=== PATIENT | female | born 1975 | race Caucasian/White ===

== ENCOUNTER 2017-04-01 16:12 | Emergency (ER) | payer MEDICAID, OTHER ==
[~2017-04-01] VITALS: Ht 167.6 cm; Wt 136.1 kg
[2017-04-01 16:49] VITALS: BP 150/100
== END 2017-04-01 18:22 | disposition home or self-care (01) ==
LOC: ER 16:16
DX: S90.31XA Contusion of right foot, initial encounter (principal); S93.401A Sprain of unspecified ligament of right ankle, initial encounter; J44.9 Chronic obstructive pulmonary disease, unspecified; I10 Essential (primary) hypertension
CPT/HCPCS: 73610; 73630

== ENCOUNTER 2024-07-03 20:53 | Inpatient (IN) | payer MEDICARE, MEDICAID ==
[~2024-07-03] VITALS: Ht 167.6 cm; Wt 363.0 kg
[2024-07-03] MEDS ORDERED: SODIUM CHLORIDE 0.9% 1,000 ML IV ONE (21:15)
--- NOTE | 2024-07-03 21:15 | ED.PDOC ---
SOB-HPI HPI Comments 49 year old female came to ER via EMS due to shortness of breath. Patient has history of hypertension, CHF and COPD. Patient is morbidly obese. For the past few hours, patient has been having shortness of breath, and chest tightness progressively worsening. Upon arrival of paramedics, patient in respiratory distress, noted rales and wheezes. Saturating at 78% on room air. Patient was given nitro, Duovent nebulization and placed on CPAP while en route to the ER. Currently saturating at 93% Chief Complaint: Shortness Of Breath Time Seen by MD: 21:15 Primary Care Provider: DESMOND Reviewed notes: Nurses Notes Information Source: Patient, Emergency Med Personnel Mode of Arrival: EMS Severity: Moderate Timing: Hours Duration: Since onset History of: COPD, CHF Prehospital treatment: Breathing Tx, NTG, Treatment Review of Systems REVIEW OF SYSTEMS: No fever, no chills, or fatigue HEENT: No sore throat, no earache, no congestion, no neck pain. Cardiac: (+) chest pain. No palpitations. Lungs: (+) shortness of breath, (+) cough. (+) rales (+) wheezing GI: No nausea, no vomiting, no diarrhea, no constipation, no abdominal pain : No dysuria, frequency, or urgency. No hematuria. Musculoskeletal: No joint pain , no joint swelling, no extremity edema. Skin: No rash, no itching. Neuro: No headache, no dizziness, no weakness Vital Signs Vital Signs Date Time Temp Pulse Resp B/P (MAP) Pulse Ox O2 Delivery O2 Flow Rate FiO2 07/04/24 00:30 77 24 128/84 (99) 92 07/03/24 23:43 6.0 07/03/24 23:30 98.3 98.3 07/03/24 21:00 Bi-Pap+ 40 40 Physical Exam General: Awake, alert and oriented. No acute distress. Skin: Skin in warm, dry and intact. Appropriate color for ethnicity. Nailbeds pink with no cyanosis. HEENT: The head is normocephalic and atraumatic. Conjunctivae are clear without exudates or hemorrhage. Sclera is non-icteric. EOM are intact. No signs of nystagmus. Eyelids are normal in appearance without swelling or lesions. Oral mucosa is pink and moist Neck: The neck is supple with normal range of motion. No JVD. Cardiac: Heart rate and rhythm are normal. No murmurs, gallops, or rubs are auscultated. Respiratory: Labored breathing. Tachypnea, positive rales, no wheezing. Abdominal: Abdomen is soft, non-tender without distention. Bowel sounds are present and normoactive in all four quadrants. Extremities: Nonpitting bilateral lower extremity edema. Neurological: The patient is awake, alert and oriented to person, place, and time with normal speech. Speech is clear. There is no facial asymmetry. Past Medical History PAST MEDICAL HISTORY: CHF, COPD, HTN Past Medical History (Other): Morbid obesity Surgical History: Denies all surgeries DETECTIVE CAPTAIN History: No Pertinent DETECTIVE CAPTAIN History Family History Family History: Unknown Social History Smoker: Non-Smoker Alcohol: Denies ETOH Use Drugs: Denies Drug Use Lives In: Home EKG EKG : Pulse Rate (adult): 82 Cardiac Rhythm: NSR Block: LBBB Hypertrophy: LAE, LVH Was a procedure done? Was a procedure done?: No Differential Dx Differential Diagnosis: Asthma, CHF, COPD, Myocardial infarction, Panic Attack, Pneumonia, Respiratory Distress X-Ray, Labs, Meds, VS Vital Signs Date Time Temp Pulse Resp B/P (MAP) Pulse Ox O2 Delivery O2 Flow Rate FiO2 07/04/24 00:30 77 24 128/84 (99) 92 07/03/24 23:55 88 22 135/96 07/03/24 23:43 84 18 148/75 95 6.0 07/03/24 23:30 98.3 84 22 148/75 (99) 95 98.3 07/03/24 23:29 84 22 148/75 07/03/24 21:46 136/97 07/03/24 21:15 82 07/03/24 21:03 82 07/03/24 21:00 Bi-Pap+ 40 40 07/03/24 20:54 84 Facial BiPAP Mask 40 07/03/24 20:54 26 93 Bi-Pap+ 0 40 40 07/03/24 20:54 98.3 84 26 136/97 (110) 93 Lab Test 07/04/24 00:19 07/03/24 22:21 07/03/24 22:05 07/03/24 21:38 Range/Units Troponin I High Sensitivity 263 *H 260 *H </=34 ng/L Blood Gas Specimen Type Arterial Blood Gas Sample Site Right radial Blood Gas Patient Temperature 37.0 Arterial Blood Date Drawn [id number] Arterial Blood pH 7.345 L 7.350-7.450 Arterial Blood Partial Pressure CO2 52.7 H 32.0-45.0 mmHg Arterial Blood Partial Pressure O2 83.7 83.0-108.0 mmHg Arterial Blood HCO3 28.1 H 21.0-28.0 mmol/L Arterial Blood Oxygen Saturation 95.4 94.0-98.0 % Arterial Blood Base Excess 1.4 -2.0-3.0 mmol/L Arterial Blood Oxyhemoglobin 92.8 L 94.0-98.0 % Arterial Blood Carboxyhemoglobin 2.1 H 0.5-1.5 % Arterial Blood Methemoglobin 0.6 0.0-1.5 % Mohsen Test Yes Blood Gas Total Hemoglobin 14.20 12.0-16.0 g/dL Blood Gas Set Respiration Rate 12.0 Blood Gas Modality Mask - bipap FiO2 % 40.0 Blood Gas EPAP 5 Blood Gas IPAP 12 Influenza Type A Antigen Negative Negative Influenza Type B Antigen Negative Negative SARS-CoV-2 Antigen (Rapid) Negative NEGATIVE Test 07/03/24 21:20 07/03/24 10:25 Range/Units White Blood Count 9.6 4.4-10.8 10^3/uL Red Blood Count 4.39 4.0-5.20 10^6/uL Hemoglobin 13.4 12.2-16.2 g/dL Hematocrit 39.0 36.0-46.0 % Mean Corpuscular Volume 88.8 80.0-100.0 fL Mean Corpuscular Hemoglobin 30.5 28.0-32.0 pg Mean Corpuscular Hemoglobin Concent 34.3 32.0-36.0 g/dL Red Cell Distribution Width 16.1 H 11.8-14.3 % Platelet Count 228 140-450 10^3/uL Mean Platelet Volume 8.8 6.9-10.8 fL Neutrophils (%) (Auto) 77.2 37.0-80.0 % Lymphocytes (%) (Auto) 13.7 10.0-50.0 % Monocytes (%) (Auto) 5.9 0.0-12.0 % Eosinophils (%) (Auto) 2.6 0.0-7.0 % Basophils (%) (Auto) 0.6 0.0-2.0 % Neutrophils # (Auto) 7.4 1.6-8.6 10 ^3/uL Lymphocytes # (Auto) 1.3 0.4-5.4 10 ^3/uL Monocytes # (Auto) 0.6 0-1.3 10 ^3/uL Eosinophils # (Auto) 0.3 0-0.8 10 ^3/uL Basophils # (Auto) 0.1 0-0.2 10 ^3/uL Nucleated Red Blood Cells 0.1 % D-Dimer, Quantitative 3.51 H 0.0-0.49 mg/L FEU Sodium Level 139 136-145 mmol/L Potassium Level 4.8 3.5-5.1 mmol/L Chloride Level 107 98-107 mmol/L Carbon Dioxide Level 30 20-31 mmol/L Anion Gap 2 L 5-15 Blood Urea Nitrogen 14 9-23 mg/dL Creatinine 0.84 0.550-1.02 mg/dL Glomerular Filtration Rate Calc 84 >90 mL/min BUN/Creatinine Ratio 16.7 10.0-20.0 Serum Glucose 102 74-106 mg/dL Lactic Acid Level 0.9 0.4-2.0 mmol/L Calcium Level 9.4 8.7-10.4 mg/dL Total Bilirubin 0.8 0.2-1.0 mg/dL Aspartate Amino Transferase (AST) 32 13-40 U/L Alanine Aminotransferase (ALT) 30 7-40 U/L Alkaline Phosphatase 101 46-116 U/L Troponin I High Sensitivity 258 *H </=34 ng/L B-Type Natriuretic Peptide 376.99 0-100 pg/mL Total Protein 6.8 5.7-8.2 g/dL Albumin 4.0 3.2-4.8 g/dL Urine Color Yellow Yellow Urine Clarity Clear Clear Urine pH 5.5 5.0-9.0 Urine Specific [place] 1.020 1.001-1.035 Urine Protein Trace H Negative Urine Ketones Negative Negative Urine Blood Negative Negative /uL Urine Nitrite 2+ H Negative Urine Bilirubin Negative Negative Urine Urobilinogen Normal Negative mg/dL Urine Leukocyte Esterase Negative Negative /uL Urine RBC 1 0 - 4 /hpf Urine Microscopic WBC 2 0-5 /HPF Urine Squamous Epithelial Cells Few <5 /hpf Urine Bacteria Few H None Seen /hpf Urine Hyaline Casts Few 0 - 2 /lpf Urine Mucus Few None Seen Urine Glucose Normal Normal mg/dL Current Medications Medications (Trade) Dose Ordered Sig/Edgard Route Start Time Stop Time Status Last Admin Albuterol (Ventolin Medneb) 2.5 mg ONCE ONCE NEB 07/03/24 21:15 07/03/24 21:16 DC 07/03/24 21:21 Ipratropium Thayer (Atrovent Medneb) 0.5 mg ONCE ONCE NEB 07/03/24 21:15 07/03/24 21:16 DC 07/03/24 21:21 Furosemide (Lasix Injection) 40 mg ONCE ONCE IV 07/03/24 21:15 07/03/24 21:16 DC 07/03/24 21:46 Methylprednisolone Sodium Succinate (Solu Medrol) 80 mg ONCE ONCE IV 07/03/24 21:15 07/03/24 21:16 DC 07/03/24 21:47 Morphine Sulfate 2 mg ONCE ONCE IV 07/03/24 23:30 07/03/24 23:31 DC 07/03/24 23:29 Ondansetron HCl (Zofran) 4 mg ONCE ONCE IV 07/03/24 23:30 07/03/24 23:31 DC 07/03/24 23:28 CHEST RADIOGRAPH Indication: cp Technique: Single frontal view of the chest was obtained Comparison: None FINDINGS: Lines and Tubes: None Lungs: Bilateral pulmonary vascular congestion Pleura: No effusion. No pneumothorax. Cardiomediastinal contours: Cardiomegaly Bones: No acute osseous abnormality. IMPRESSION: 1. Findings suggest congestive failure can not entirely exclude pneumonia Images Reviewed?: Images reviewed and evaluated by me (Chest x-ray shows congestive changes) Time of 1ST Reevaluation: 21:07 Reevaluation 1ST: Unchanged Patient Education/Counseling: Diagnosis, Treatment Family Education/Counseling: No Family Present Departure 1 Departure Time of Disposition: 23:14 Impression: Primary Impression: Shortness of breath Additional Impression: Acute exacerbation of CHF (congestive heart failure) Disposition: ADMITTED INPATIENT Condition: Stable Comments 49-year-old female who presents to the emergency department with acute onset worsening shortness of breath, she is found to be hypoxic. Workup reveals CHF exacerbation. IV Lasix, DuoNeb and Solu-Medrol administered in the ED. Troponin noted to be elevated at 258, not increasing. D-dimer elevated. Considered heparin however patient is denying any chest pain, no ST changes on EKG.CT angiogram pending. Patient admitted for further treatment, evaluation and monitoring. Extensive evaluation was performed in attempt to identify or rule out: (See differential diagnosis section) The following tests were ordered, and results were reviewed by me: (See diagnostic results section) The following test were independently interpreted by me: EKG, chest x-ray I reviewed and agreed with the following test results read by other providers: Chest x-ray I reviewed the following notes from the pt's past medical encounters: Encounter March of 2017 for foot injury Additional information was gathered from interviewing the following independent historians: EMS personnel Discussion of management or test interpretation with external physician/other qualified health career services assistant: DISCUSSED WITH DR. BROWNING WITH [employer] [phone] Addressed an acute or chronic illness that poses a threat to life or bodily function: Hypoxia, CHF exacerbation Decision regarding hospitalization or escalation of hospital level of care: Risk and benefits of admission for further treatment of patient's condition was considered. Due to patient's current clinical condition, high risk of decline and poor outcome if discharged and need for further inpatient management and monitoring, patient will be admitted to the hospital. Drug therapy requiring intensive monitoring for toxicity: IV contrast, IV Lasix Parenteral controlled substances: N/A Decision regarding elective major surgery with identified patient or procedure risk factors: N/A Decision regarding emergency major surgery: N/A Decision not to resuscitate or to de-escalate care because of poor prognosis: N/A Diagnosis or treatment significantly limited by social determinants of health: N/A Decision regarding hospitalization or escalation of hospital level of care: Risks and benefits of admission for further treatment of patient's condition was considered however due to patient's stable condition patient will be discharged to follow up closely or return to care for worsening of condition or inability to follow up. Critical Care Note Critical Care Time?: Yes (35 min-critical care time only) Critical care comment: Shortness of breath, CPAP Stability Stability form required: No Heart Score Heart Score: Heart Score Response (Comments) Value History Moderate Suspicious 1 EKG Repolarization Disturb 1 Age 45-64 1 Risk Factors >3 or Hx ASHD 2 Troponin >3 x's Normal limit 2 Total 7 I personally scribed for JADEN NUÑEZ MD ([email or web address]) on 07/03/24 at 21:15. Electronically submitted by Vito Li ([facility]). I personally scribed for JADEN NUÑEZ MD ([email or web address]) on 07/03/24 at 22:21. Electronically [facility] by [facility]ito Li ([email or web address] JADEN NUÑEZ MD Jul 03, 2024 21:15
[2024-07-03] MEDS: IPRATROPIUM BROM 0.5 MG/2.5ML INH SOL NEB ONE (21:21)
[2024-07-03] MEDS: ALBUTEROL SULF 2.5 MG/0.5ML(0.5%) NEB SOLN NEB ONE (21:21)
--- NOTE | 2024-07-03 21:31 | DVH ---
CHEST RADIOGRAPH Indication: cp Technique: Single frontal view of the chest was obtained Comparison: None FINDINGS: Lines and Tubes: None Lungs: Bilateral pulmonary vascular congestion Pleura: No effusion. No pneumothorax. Cardiomediastinal contours: Cardiomegaly Bones: No acute osseous abnormality. IMPRESSION: 1. Findings suggest congestive failure can not entirely exclude pneumonia
[2024-07-03 21:36] LABS: Basophils # (auto) 0.1 10 ^3/uL (0-0.2); Basophils % (auto) 0.6 % (0.0-2.0); Eosinophils # (auto) 0.3 10 ^3/uL (0-0.8); Eosinophils % (auto) 2.6 % (0.0-7.0); Hemoglobin 13.4 g/dL (12.2-16.2); Lymphocytes # (auto) 1.3 10 ^3/uL (0.4-5.4); Lymphocytes % (auto) 13.7 % (10.0-50.0); Mean Corpuscular Hemoglobin 30.5 pg (28.0-32.0); Mean Corpuscular Hgb Conc. 34.3 g/dL (32.0-36.0); Mean Corpuscular Volume 88.8 fL (80.0-100.0); Monocytes # (auto) 0.6 10 ^3/uL (0-1.3); Monocytes % (auto) 5.9 % (0.0-12.0); Neutrophils # (auto) 7.4 10 ^3/uL (1.6-8.6); Neutrophils % (auto) 77.2 % (37.0-80.0); Nucleated Red Blood Cells % 0.1 %; Platelet Count (auto) 228 10^3/uL (140-450); Red Blood Cells 4.39 10^6/uL (4.0-5.20); Red Cell Distribution Width 16.1 % (11.8-14.3); White Blood Cell 9.6 10^3/uL (4.4-10.8)
[2024-07-03] MEDS: FUROSEMIDE 40 MG/4 ML VIAL IV ONE (21:46)
[2024-07-03] MEDS: methylPREDNISolone SOD SUCC 125 MG/2 ML VL IV ONE (21:47)
[2024-07-03 21:50] LABS: Alanine Aminotransferase 30 U/L (7-40); Alkaline Phosphatase 101 U/L (46-116); Anion Gap 2 (5-15); Aspartate Aminotransferase 32 U/L (13-40); BUN/Creatinine Ratio 16.7 (10.0-20.0); Blood Urea Nitrogen 14 mg/dL (9-23); Calcium 9.4 mg/dL (8.7-10.4); Carbon Dioxide 30 mmol/L (20-31); Chloride 107 mmol/L (98-107); Glucose 102 mg/dL (74-106); Potassium 4.8 mmol/L (3.5-5.1); Sodium 139 mmol/L (136-145); Total Protein 6.8 g/dL (5.7-8.2)
[2024-07-03 21:51] LABS: Bilirubin, Total 0.8 mg/dL (0.2-1.0)
[2024-07-03 22:15] LABS: Base Excess 1.4 mmol/L (-2.0-3.0)
[2024-07-03 22:26] LABS: Rapid Influenza A Negative (Negative); Rapid Influenza B Negative (Negative)
[2024-07-03 22:27] LABS: COVID19 ANTIGEN SOFIA FIA NEGATIVE (NEGATIVE)
[2024-07-03] MEDS ORDERED: ACETAMINOPHEN 325 MG TAB PO ONE (23:15)
[2024-07-03] MEDS: ONDANSETRON HCL 4 MG/2 ML VIAL IV ONE (23:28)
[2024-07-03] MEDS: MORPHINE SULFATE INJ 2 MG/ml SYRG IV ONE (23:29)
[2024-07-03 23:43] VITALS: BP 148/75; PULSE 84; RESP 18; O2SAT 95
[2024-07-04] VITALS (9 sets, daily range): BP systolic 114–146; BP diastolic 63–90; PULSE 78–90; RESP 17–26; TEMP 98.2–98.3; O2SAT 92–96
[2024-07-04] MEDS: IOHEXOL 350 MG/ML 100ML IJ ONE (00:07)
[2024-07-04 00:31] LABS: Urine Bacteria FEW /hpf (None Seen); Urine Blood Negative /uL (Negative); Urine Clarity Clear (Clear); Urine Color Yellow (Yellow); Urine Hyaline Cast FEW /lpf (0 - 2); Urine Mucus FEW (None Seen); Urine Protein, UAD TRACE (Negative); Urine Squamous Epithelial Cell FEW /hpf (<5); Urine Urobilinogen Normal (Negative); Urine WBC 2 /HPF (0-5); Urine pH 5.5 (5.0-9.0)
--- NOTE | 2024-07-04 00:40 | DVH ---
CTA Chest with intravenous contrast INDICATION: Shortness of breath, hypoxia, elevated D-dimer COMPARISON: None TECHNIQUE: Multidetector spiral CTA of the chest was performed of the chest with intravenous contrast . PULMONARY ANGIOGRAPHY PROTOCOL was utilized using a bolus-tracking technique centered on the main p ulmonary artery. Axial, coronal and sagittal multiplanar and MIP reformats were performed. Radiation Dose : 1. Chest: CTDI volume is mGy. Dose-length product is mGy*cm The dose indicators for CT are the volume Computed Tomography (CT) Dose Index (CTDIvol) and the Dose Length Product (DLP), and are measured in units of mGy and mGy-cm, respectively. These indicators are not patient dose, but values generated from the CT scanner acquisition factors. The report includes radiation exposure data for exposures received during this examination. Findings: Pulmonary artery: No evidence of pulmonary embolism. Lower neck: Unremarkable. Lungs / Pleura: Small bilateral pleural effusions. Groundglass opacities along with patchy interstiti al and airspace opacities noted in both lungs most likely representing pulmonary edema though pneumon ia cannot be excluded. Heart/Vascular Structures: [id number] cardiomegaly. No pericardial effusion. Normal thoracic ao rta. Lymph Nodes: No lymphadenopathy. Musculoskeletal: No acute osseous abnormality. Soft tissues: Unremarkable. Visualized Upper abdomen: Unremarkable. IMPRESSION: No evidence of pulmonary embolism. Cardiomegaly. Small bilateral effusions. Groundglass opacities along with patchy interstitial and air space opacities noted in both lungs most likely representing pulmonary edema though pneumonia cannot be excluded.
[2024-07-04] MEDS: MORPHINE SULFATE INJ 2 MG/ml SYRG IV ONE (03:27)
[2024-07-04] MEDS ORDERED: IPRATROPIUM BROM 0.5 MG/2.5ML INH SOL NEB PRN (04:00)
[2024-07-04] MEDS: cefTRIAXone 1GM/50ML D5W 50 ML IV ONE ×2 (04:00→04:56)
[2024-07-04] MEDS ORDERED: NITROGLYCERIN 0.4 MG SL TAB SL PRN ×2 (04:00→04:45)
[2024-07-04] MEDS ORDERED: ONDANSETRON HCL 4 MG/2 ML VIAL IV PRN (04:00)
[2024-07-04] MEDS ORDERED: hydrALAZINE HCL 20 MG/ML VL IV PRN ×2 (04:00→04:45)
[2024-07-04] MEDS ORDERED: DOCUSATE SOD 100 MG CAP PO PRN (04:00)
[2024-07-04] MEDS ORDERED: MORPHINE SULFATE INJ 2 MG/ml SYRG IV PRN ×2 (04:00→04:45)
[2024-07-04] MEDS ORDERED: ALBUTEROL SULF 2.5 MG/0.5ML(0.5%) NEB SOLN NEB PRN (04:00)
--- NOTE | 2024-07-04 04:09 | DVHHP2 ---
History of Present Illness Reason for Visit: Acute exacerbation of congestive heart failure History of Present Illness The patient is a 49-year-old female morbidly obese with past medical history of COPD, CHF, and hypertension who presented to [facility] ED with complaint of shortness of breaths. Patient reports symptoms progressively get worse with chest tightness, increased work of breathing, getting worse that prompted this visit. Patient was seen and evaluated in the ED, laboratory data shows WBC 9.6, platelets 228, sodium 139, potassium 4.8, BUN 14, creatinine 0 .84, GFR 84, glucose 102, troponin 258, BNP 376.99, D-dimer 3.51. Urinalysis positive for urinary tract infection. CT angiography showed no evidence of pulmonary embolism. Chest x-ray revealing congestive failure, pneumonia can not be excluded. Patient was started on IV antibiotic regimen Rocephin, please see medication orders section in the computer. On my assessment, patient denied chest pain, no headache, no dizziness, currently on CPAP, no nausea, no vomiting, no fever, no chills. Patient was admitted for further evaluation and medical management. Past Medical History CHF, COPD, HTN, Morbid obesity Past Surgical History Denies all surgeries Family History Reviewed, noncontributory to the management of this case. Past Social History The patient lives at home, denies smoking, alcohol or illicit drugs abuse. Review of Systems Constitutional: Yes: Weakness; No: Fever, Chills, Sweats, Malaise, Other Eyes: No: Pain, Vision change, Conjunctivae inflammation, Eyelid inflammation, Other, Redness ENT: No: Ear pain, Ear discharge, Nose pain, Nose discharge, Nose congestion, Mouth pain, Mouth swelling, Throat pain, Throat swelling, Other Respiratory: Shortness of breath, Wheezing, Other (SOB at rest); No: Cough, Dry, SOB with excertion, Hemoptysis, Pleuritic Pain, Sputum, Wheezing Cardiovascular: Chest Pain; No: Palpitations, Orthopnea, Paroxysmal Noc. Dysp jessie, Edema, Lt Headedness, Other Gastrointestinal: No: Nausea, Vomiting, Abdominal Pain, Diarrhea, Constipation, Melena, Hematochezia, Other Genitourinary: No Dysuria, No Frequency, No Incontinence, No Hematuria, No Retention, No Other Musculoskeletal: No: other, neck pain, shoulder pain, arm pain, back pain, hand pain, leg pain, foot pain Skin: No: Rash, Lesions, Jaundice, Bruising, Other Neurological: No: Weakness, Numbness, Incoordination, Change in speech, Confusion, Seizures, Other Allergies: Coded Allergies: Acetaminophen (Verified Allergy, Severe, 07/03/24) Ibuprofen (Verified Allergy, Severe, 07/03/24) NSAIDs (Verified Allergy, Unknown, 07/03/24) Exam Vital Signs Vital Signs Date Time Temp Pulse Resp B/P (MAP) Pulse Ox O2 Delivery O2 Flow Rate FiO2 07/04/24 03:52 78 24 148/97 07/04/24 03:30 92 07/03/24 23:43 6.0 07/03/24 23:30 98.3 98.3 07/03/24 21:00 Bi-Pap+ 40 40 General Appearance: Alert, Oriented X3, Cooperative, No acute distress HEENT: Atraumatic, PERRLA, EOMI, Mucous membr. moist/pink Respiratory: Normal air movement, Other (Diminished breath sounds) Cardiovascular: Regular rate, Normal S1, Normal S2, No murmurs Abdominal: Normal bowel sounds, Soft, No tenderness, No hepatospenomegaly, No masses Extremities: No clubbing, No cyanosis, No edema, Normal pulses, No tenderness/swelling Skin: No rashes, No breakdown, No significant lesion Neuro: Normal speech, Normal tone, Sensation intact, Cranial nerves 3-12 NL, Reflexes 2+, Other (Generalized weakness) Psych/Mental Status: Mental status NL, Mood NL Labs/Xrays Labs Test 07/04/24 00:19 07/03/24 22:05 07/03/24 21:38 07/03/24 21:20 Range/Units Troponin I High Sensitivity 263 *H </=34 ng/L Blood Gas Specimen Type Arterial Blood Gas Sample Site Right radial Blood Gas Patient Temperature 37.0 Arterial Blood Date Drawn [id number] Arterial Blood pH 7.345 L 7.350-7.450 Arterial Blood Partial Pressure CO2 52.7 H 32.0-45.0 mmHg Arterial Blood Partial Pressure O2 83.7 83.0-108.0 mmHg Arterial Blood HCO3 28.1 H 21.0-28.0 mmol/L Arterial Blood Oxygen Saturation 95.4 94.0-98.0 % Arterial Blood Base Excess 1.4 -2.0-3.0 mmol/L Arterial Blood Oxyhemoglobin 92.8 L 94.0-98.0 % Arterial Blood Carboxyhemoglobin 2.1 H 0.5-1.5 % Arterial Blood Methemoglobin 0.6 0.0-1.5 % Mohsen Test Yes Blood Gas Total Hemoglobin 14.20 12.0-16.0 g/dL Blood Gas Set Respiration Rate 12.0 Blood Gas Modality Mask - bipap FiO2 % 40.0 Blood Gas EPAP 5 Blood Gas IPAP 12 Influenza Type A Antigen Negative Negative Influenza Type B Antigen Negative Negative SARS-CoV-2 Antigen (Rapid) Negative NEGATIVE White Blood Count 9.6 4.4-10.8 10^3/uL Red Blood Count 4.39 4.0-5.20 10^6/uL Hemoglobin 13.4 12.2-16.2 g/dL Hematocrit 39.0 36.0-46.0 % Mean Corpuscular Volume 88.8 80.0-100.0 fL Mean Corpuscular Hemoglobin 30.5 28.0-32.0 pg Mean Corpuscular Hemoglobin Concent 34.3 32.0-36.0 g/dL Red Cell Distribution Width 16.1 H 11.8-14.3 % Platelet Count 228 140-450 10^3/uL Mean Platelet Volume 8.8 6.9-10.8 fL Neutrophils (%) (Auto) 77.2 37.0-80.0 % Lymphocytes (%) (Auto) 13.7 10.0-50.0 % Monocytes (%) (Auto) 5.9 0.0-12.0 % Eosinophils (%) (Auto) 2.6 0.0-7.0 % Basophils (%) (Auto) 0.6 0.0-2.0 % Neutrophils # (Auto) 7.4 1.6-8.6 10 ^3/uL Lymphocytes # (Auto) 1.3 0.4-5.4 10 ^3/uL Monocytes # (Auto) 0.6 0-1.3 10 ^3/uL Eosinophils # (Auto) 0.3 0-0.8 10 ^3/uL Basophils # (Auto) 0.1 0-0.2 10 ^3/uL Nucleated Red Blood Cells 0.1 % D-Dimer, Quantitative 3.51 H 0.0-0.49 mg/L FEU Sodium Level 139 136-145 mmol/L Potassium Level 4.8 3.5-5.1 mmol/L Chloride Level 107 98-107 mmol/L Carbon Dioxide Level 30 20-31 mmol/L Anion Gap 2 L 5-15 Blood Urea Nitrogen 14 9-23 mg/dL Creatinine 0.84 0.550-1.02 mg/dL Glomerular Filtration Rate Calc 84 >90 mL/min BUN/Creatinine Ratio 16.7 10.0-20.0 Serum Glucose 102 74-106 mg/dL Lactic Acid Level 0.9 0.4-2.0 mmol/L Calcium Level 9.4 8.7-10.4 mg/dL Total Bilirubin 0.8 0.2-1.0 mg/dL Aspartate Amino Transferase (AST) 32 13-40 U/L Alanine Aminotransferase (ALT) 30 7-40 U/L Alkaline Phosphatase 101 46-116 U/L B-Type Natriuretic Peptide 376.99 0-100 pg/mL Total Protein 6.8 5.7-8.2 g/dL Albumin 4.0 3.2-4.8 g/dL Test 07/03/24 10:25 Range/Units Urine Color Yellow Yellow Urine Clarity Clear Clear Urine pH 5.5 5.0-9.0 Urine Specific [place] 1.020 1.001-1.035 Urine Protein Trace H Negative Urine Ketones Negative Negative Urine Blood Negative Negative /uL Urine Nitrite 2+ H Negative Urine Bilirubin Negative Negative Urine Urobilinogen Normal Negative mg/dL Urine Leukocyte Esterase Negative Negative /uL Urine RBC 1 0 - 4 /hpf Urine Microscopic WBC 2 0-5 /HPF Urine Squamous Epithelial Cells Few <5 /hpf Urine Bacteria Few H None Seen /hpf Urine Hyaline Casts Few 0 - 2 /lpf Urine Mucus Few None Seen Urine Glucose Normal Normal mg/dL PATIENT: JESSICA MURRELL ACCT: [id number] UNIT: [id number] : 1975 LOC: ER ROOM / BED: / AGE / SEX: 49 / F ADM STATUS: REG ER SERVICE [id number] ORDERING PHYSICIAN: JADEN NUÑEZ MD PROCEDURE(s): CTACH - CT ANGIO CHEST CONTRAST REASON: Shortness of breath, hypoxia, elevated D-dimer ORDER NUMBER(s): [id number], ACCESSION NUMBER(s): [id number] CTA Chest with intravenous contrast INDICATION: Shortness of breath, hypoxia, elevated D-dimer COMPARISON: None TECHNIQUE: Multidetector spiral CTA of the chest was performed of the chest with intravenous contrast. PULMONARY ANGIOGRAPHY PROTOCOL was utilized using a bolus- tracking technique centered on the main pulmonary artery. Axial, coronal and sagittal multiplanar and MIP reformats were performed. Radiation Dose: 1. Chest: CTDI volume is mGy. Dose-length product is mGy*cm The dose indicators for CT are the volume Computed Tomography (CT) Dose Index (CTDIvol) and the Dose Length Product (DLP), and are measured in units of mGy and mGy-cm, respectively. These indicators are not patient dose, but values generated from the CT scanner acquisition factors. The report includes radiation exposure data for exposures received during this examination. Findings: Pulmonary artery: No evidence of pulmonary embolism. Lower neck: Unremarkable. Lungs/Pleura: Small bilateral pleural effusions. Groundglass opacities along w ith patchy interstitial and airspace opacities noted in both lungs most likely representing pulmonary edema though pneumonia cannot be excluded. Heart/Vascular Structures: [id number] cardiomegaly. No pericardial effusion. Normal thoracic aorta. Lymph Nodes: No lymphadenopathy. Musculoskeletal: No acute osseous abnormality. Soft tissues: Unremarkable. Visualized Upper abdomen: Unremarkable. IMPRESSION: No evidence of pulmonary embolism. Cardiomegaly. Small bilateral effusions. Groundglass opacities along with patchy interstitial and airspace opacities noted in both lungs most likely representing pulmonary edema though pneumonia cannot be excluded. ORDERING PHYSICIAN: JADEN NUÑEZ MD PROCEDURE(s): CXR1 - CHEST XRAY 1 VIEW REASON: cp ORDER NUMBER(s): [id number], ACCESSION NUMBER(s): [id number] CHEST RADIOGRAPH Indication: cp Technique: Single frontal view of the chest was obtained Comparison: None FINDINGS: Lines and Tubes: None Lungs: Bilateral pulmonary vascular congestion Pleura: No effusion. No pneumothorax. Cardiomediastinal contours: Cardiomegaly Bones: No acute osseous abnormality. IMPRESSION: 1. Findings suggest congestive failure can not entirely exclude pneumonia Assessment/Plan Assessment/Plan COPD with acute exacerbation Elevated D-dimer Morbid obesity Elevated troponin Pneumonia, unspecified organisms Acute exacerbation of congestive heart failure Urinary tract infection Generalized weakness Plan 1. Admit to telemetry unit 2. Breathing treatment 3. Pain control management 4. IV antibiotic management 5. Management of fluids and electrolytes 6. Consultation for cardiology 7. Diagnostic test CT Angiography 8. DVT prophylaxis-on Eliquis 9. Repeat labs CBC, CMP in a.m. 10. Home medication reviewed and reconciled 11. Continue with current medical management 12. Treatment plan discussed with patient and RN. Patient verbalized understanding. Plan discussed with: Patient, Other (RN) My Orders Orders - HOMAR ALBERT DNP Procedure Category Date Status Time Complete Blood Count LAB 07/04/24 Verified 03:47 Comprehensive LAB 07/04/24 Verified Metabolic Panel 03:47 * Cardiology Consult CONS 07/04/24 Verified 03:47 Carvedilol Tablet PHA 07/04/24 Verified (Coreg Tablet) 10:00 Atorvastatin (Lipitor) PHA 07/04/24 Verified 22:00 Albuterol Medneb PHA 07/04/24 Verified (Ventolin Medneb) 04:00 Ipratropium Medneb PHA 07/04/24 Verified (Atrovent Medneb) 04:00 Famotidine Injection PHA 07/04/24 Verified (Pepcid Injection) 10:00 Methylprednisolone PHA 07/04/24 Verified Sod Succ (Solu Medrol 06:00 Furosemide Injection PHA 07/04/24 Verified (Lasix Injection) 10:00 Urine Bacterial JASE 07/04/24 Verified Culture 03:47 Ceftriaxone Ivpb PHA 07/04/24 Verified Rocephin 09:00 Ceftriaxone Ivpb PHA 07/04/24 Verified Rocephin 04:00 Apixaban (Eliquis) PHA 07/04/24 Verified 10:00 Admit ADMIT 07/04/24 Verified 03:47 Allergies ADOLFO 07/04/24 Verified 03:47 Code Status CODE 07/04/24 Verified 03:47 Sodium Chloride Lock PHA 07/04/24 Verified (Saline Lock Ns) 06:00 Oxygen Per Hour RT 07/04/24 Verified 03:47 Ondansetron Hcl PHA 07/04/24 Verified (Zofran) 04:00 Docusate Sodium PHA 07/04/24 Verified Capsule (Colace 04:00 Complete Blood Count LAB 07/05/24 Verified 04:00 Comprehensive LAB 07/05/24 Verified Metabolic Panel 04:00 Cardiac DIET 07/04/24 Verified Diet-2gna,Lofat,Lochol Breakfast Condition: Serious ADOLFO 07/04/24 Verified 03:47 Bedrest With Bathroom ADOLFO 07/04/24 Verified Privileg 03:47 Sequential [facility] 07/04/24 Verified Compression Device Nitroglycerin [facility] 07/04/24 Verified Sublingual (Ntrostat 04:00 Morphine Sulfate [facility] 07/04/24 Verified Injection 04:00 Stat Ekg For Chest [facility] 07/04/24 Verified Pain 03:47 Notify Md Of Changes [facility] 07/04/24 Verified From Base 03:47 Registered Nurse Midwife For [facility] 07/04/24 Verified 24 Hours 03:47 Emergency Dysrhythmia [facility] 07/04/24 Verified Protocol 03:47 Rhythm Strips Once [facility] 07/04/24 Verified Every Shift 03:47 Oxygen By Nasal 07/04/24 Verified Cannula 03:47 Problem List: (1) COPD with acute exacerbation (2) Elevated d-dimer (3) Elevated troponin (4) Acute exacerbation of congestive heart failure (5) Morbid obesity (6) Generalized weakness (7) Urinary tract infection (8) Pneumonia, unspecified organism Date of Service: Jul 04, 2024 Billing Provider: HOMAR ALBERT DNP Common Visit Codes: [id number] INP/OBS CARE (HIGH) HOMAR ALBERT DNP Jul 04, 2024 04:09
[2024-07-04 04:51] LABS: Alanine Aminotransferase 32 U/L (7-40); Albumin 4.3 g/dL (3.2-4.8); Alkaline Phosphatase 105 U/L (46-116); Anion Gap 7 (5-15); Aspartate Aminotransferase 33 U/L (13-40); BUN/Creatinine Ratio 15.6 (10.0-20.0); Blood Urea Nitrogen 12 mg/dL (9-23); Calcium 9.8 mg/dL (8.7-10.4); Carbon Dioxide 30 mmol/L (20-31); Chloride 100 mmol/L (98-107); Potassium 4.9 mmol/L (3.5-5.1); Sodium 137 mmol/L (136-145); Total Protein 7.5 g/dL (5.7-8.2)
[2024-07-04 04:52] LABS: Bilirubin, Total 0.9 mg/dL (0.2-1.0)
[2024-07-04 04:58] LABS: Glucose 142 mg/dL (74-106)
[2024-07-04 05:38] LABS: Basophils # (auto) 0 10 ^3/uL (0-0.2); Basophils % (auto) 0.2 % (0.0-2.0); Eosinophils # (auto) 0 10 ^3/uL (0-0.8); Eosinophils % (auto) 0.1 % (0.0-7.0); Hematocrit 42.5 % (36.0-46.0); Hemoglobin 14.4 g/dL (12.2-16.2); Lymphocytes # (auto) 0.5 10 ^3/uL (0.4-5.4); Lymphocytes % (auto) 4.6 % (10.0-50.0); Mean Corpuscular Hemoglobin 30.3 pg (28.0-32.0); Mean Corpuscular Hgb Conc. 33.8 g/dL (32.0-36.0); Mean Corpuscular Volume 89.4 fL (80.0-100.0); Monocytes # (auto) 0.1 10 ^3/uL (0-1.3); Monocytes % (auto) 0.9 % (0.0-12.0); Neutrophils % (auto) 94.2 % (37.0-80.0); Nucleated Red Blood Cells % 0.1 %; Platelet Count (auto) 244 10^3/uL (140-450); Red Blood Cells 4.75 10^6/uL (4.0-5.20); Red Cell Distribution Width 16.4 % (11.8-14.3); White Blood Cell 10.6 10^3/uL (4.4-10.8)
[2024-07-04] MEDS: SODIUM CHLOR 0.9% PF (SALINE LOCK) 10ML VIAL/SYR IV SCH (05:46)
[2024-07-04] MEDS: methylPREDNISolone SOD SUCC 40 MG/ML VL IV SCH (05:51)
[2024-07-04] MEDS ORDERED: SODIUM CHLOR 0.9% PF (SALINE LOCK) 10ML VIAL/SYR IV SCH (06:00)
[2024-07-04] MEDS ORDERED: methylPREDNISolone SOD SUCC 40 MG/ML VL IV SCH (06:00)
[2024-07-04] MEDS: AZITHROMYCIN 500MG/ 250ML 250 ML IV ONE (06:08)
[2024-07-04] MEDS: APIXABAN 5 MG TAB PO SCH (09:10)
[2024-07-04] MEDS: FAMOTIDINE (10MG/ML) 2ML VL IV SCH (09:10)
[2024-07-04] MEDS: FUROSEMIDE 40 MG/4 ML VIAL IV SCH (09:10)
[2024-07-04] MEDS: CARVEDILOL 12.5 MG TAB PO SCH (09:11)
--- NOTE | 2024-07-04 09:38 | DVHINCON2 ---
Date of service: Jul 04, 2024 History of Present Illness 49 year old female came to ER via EMS due to shortness of breath. Patient has history of hypertension, CHF and COPD. Patient is morbidly obese. For the past few hours, patient has been having shortness of breath, and chest tightness progressively worsening. Upon arrival of paramedics, patient in respiratory distress, noted rales and wheezes. Saturating at 78% on room air. Patient was given nitro, Duovent nebulization and placed on CPAP while en route to the ER. Currently saturating at 93% Chief Complaint: Shortness Of Breath Time Seen by MD: 21:15 Primary Care Provider: DESMOND Mallory notes: Nurses Notes Information Source: Patient, Emergency Med Personnel Mode of Arrival: EMS Severity: Moderate Timing: Hours Duration: Since onset History of: COPD, CHF Prehospital treatment: Breathing Tx, NTG, Treatment Review of Systems REVIEW OF SYSTEMS: Past Medical History reviewed Allergies: Coded Allergies: Acetaminophen (Verified Allergy, Severe, 07/03/24) Ibuprofen (Verified Allergy, Severe, 07/03/24) NSAIDs (Verified Allergy, Unknown, 07/03/24) Current Medications Current Medications Medications (Trade) Dose Ordered Sig/Edgard Route PRN Reason Start Time Stop Time Status Last Admin Carvedilol (Coreg Tablet) 12.5 mg Q12HR PO 07/04/24 10:00 07/04/24 04:33 DC Atorvastatin Calcium (Lipitor) 20 mg HS PO 07/04/24 22:00 07/04/24 04:33 DC Albuterol (Ventolin Medneb) 2.5 mg Q4HPRN PRN NEB SHORTNESS OF BREATH 07/04/24 04:00 07/04/24 04:32 DC Ipratropium [place] (Atrovent Medneb) 0.5 mg Q4HPRN PRN NEB SHORTNESS OF BREATH 07/04/24 04:00 07/04/24 04:35 DC Famotidine (Pepcid Injection) 20 mg Q12HR IV 07/04/24 10:00 07/04/24 04:34 DC Methylprednisolone Sodium Succinate (Solu Medrol) 40 mg Q8HR IV 07/04/24 06:00 07/04/24 04:35 DC Furosemide (Lasix Injection) 40 mg DAILY IV 07/04/24 10:00 07/04/24 04:34 DC Ceftriaxone Sodium 50 ml @ 100 mls/hr DAILY@09 IV 07/05/24 09:00 07/04/24 04:31 DC Apixaban (Eliquis) 5 mg BID PO 07/04/24 10:00 07/04/24 04:33 DC Sodium Chloride (Saline Lock Ns) 10 ml Q8HR IV 07/04/24 06:00 07/04/24 04:36 DC Ondansetron HCl (Zofran) 4 mg Q4HP PRN IV NAUSEA / VOMITING 07/04/24 04:00 07/04/24 04:36 DC Docusate Sodium (Colace Capsule) 100 mg BIDPRN PRN PO FOR CONSTIPATION 07/04/24 04:00 07/04/24 04:34 DC Nitroglycerin (Ntrostat Sublingual) 0.4 mg Q5MINP PRN SL FOR CHEST PAIN 07/04/24 04:00 07/04/24 04:36 DC Morphine Sulfate 2 mg Q30M PRN IV FOR CHEST PAIN 07/04/24 04:00 07/04/24 04:35 DC Hydralazine HCl (Apresoline Injection) 10 mg Q6HP PRN IV SBP>150 07/04/24 04:00 07/04/24 04:35 DC Ceftriaxone Sodium 50 ml @ 100 mls/hr Q24H IV 07/05/24 05:00 Albuterol (Ventolin Medneb) 2.5 mg Q4HPRN PRN NEB SHORTNESS OF BREATH 07/04/24 04:45 Apixaban (Eliquis) 5 mg BID PO 07/04/24 10:00 07/04/24 09:10 Atorvastatin Calcium (Lipitor) 20 mg HS PO 07/04/24 22:00 Carvedilol (Coreg Tablet) 12.5 mg Q12HR PO 07/04/24 10:00 07/04/24 09:11 Docusate Sodium (Colace Capsule) 100 mg BIDPRN PRN PO FOR CONSTIPATION 07/04/24 04:45 Famotidine (Pepcid Injection) 20 mg Q12HR IV 07/04/24 10:00 07/04/24 09:10 Furosemide (Lasix Injection) 40 mg DAILY IV 07/04/24 10:00 07/04/24 09:10 Hydralazine HCl (Apresoline Injection) 10 mg Q6HP PRN IV SBP>150 07/04/24 04:45 Ipratropium [place] (Atrovent Medneb) 0.5 mg Q4HPRN PRN NEB SHORTNESS OF BREATH 07/04/24 04:45 Methylprednisolone Sodium Succinate (Solu Medrol) 40 mg Q8HR IV 07/04/24 06:00 07/04/24 05:51 Morphine Sulfate 2 mg Q30M PRN IV FOR CHEST PAIN 07/04/24 04:45 Nitroglycerin (Ntrostat Sublingual) 0.4 mg Q5MINP PRN SL FOR CHEST PAIN 07/04/24 04:45 Ondansetron HCl (Zofran) 4 mg Q4HP PRN IV NAUSEA / VOMITING 07/04/24 04:45 Sodium Chloride (Saline Lock Ns) 10 ml Q8HR IV 07/04/24 06:00 07/04/24 05:46 Azithromycin 250 ml @ 125 mls/hr Q24H IV 07/05/24 06:00 Review of Systems +sob, +weakness, 10 pt ros otherwise negative Vital Signs Vital Signs Date Time Temp Pulse Resp B/P (MAP) Pulse Ox O2 Delivery O2 Flow Rate FiO2 07/04/24 09:11 81 127/78 07/04/24 08:00 12 95 07/04/24 07:41 Facial BiPAP Mask 50 07/04/24 07:30 10 07/04/24 07:30 98.0 98.0 Physical Exam nad , on cpap s1 s2 rrr tachpneic, diffuse rhonchi abd soft obese trivial edema Labs/Diagnostic Data Labs Test 07/04/24 04:26 07/04/24 00:19 07/03/24 22:25 07/03/24 22:05 Range/Units White Blood Count 10.6 4.4-10.8 10^3/uL Red Blood Count 4.75 4.0-5.20 10^6/uL Hemoglobin 14.4 12.2-16.2 g/dL Hematocrit 42.5 36.0-46.0 % Mean Corpuscular Volume 89.4 80.0-100.0 fL Mean Corpuscular Hemoglobin 30.3 28.0-32.0 pg Mean Corpuscular Hemoglobin Concent 33.8 32.0-36.0 g/dL Red Cell Distribution Width 16.4 H 11.8-14.3 % Platelet Count 244 140-450 10^3/uL Mean Platelet Volume 9.1 6.9-10.8 fL Neutrophils (%) (Auto) 94.2 H 37.0-80.0 % Lymphocytes (%) (Auto) 4.6 L 10.0-50.0 % Monocytes (%) (Auto) 0.9 0.0-12.0 % Eosinophils (%) (Auto) 0.1 0.0-7.0 % Basophils (%) (Auto) 0.2 0.0-2.0 % Neutrophils # (Auto) 10.0 H 1.6-8.6 10 ^3/uL Lymphocytes # (Auto) 0.5 0.4-5.4 10 ^3/uL Monocytes # (Auto) 0.1 0-1.3 10 ^3/uL Eosinophils # (Auto) 0 0-0.8 10 ^3/uL Basophils # (Auto) 0 0-0.2 10 ^3/uL Nucleated Red Blood Cells 0.1 % Sodium Level 137 136-145 mmol/L Potassium Level 4.9 3.5-5.1 mmol/L Chloride Level 100 98-107 mmol/L Carbon Dioxide Level 30 20-31 mmol/L Anion Gap 7 5-15 Blood Urea Nitrogen 12 9-23 mg/dL Creatinine 0.77 0.550-1.02 mg/dL Glomerular Filtration Rate Calc 93 >90 mL/min BUN/Creatinine Ratio 15.6 10.0-20.0 Serum Glucose 142 H 74-106 mg/dL Calcium Level 9.8 8.7-10.4 mg/dL Total Bilirubin 0.9 0.2-1.0 mg/dL Aspartate Amino Transferase (AST) 33 13-40 U/L Alanine Aminotransferase (ALT) 32 7-40 U/L Alkaline Phosphatase 105 46-116 U/L Total Protein 7.5 5.7-8.2 g/dL Albumin 4.3 3.2-4.8 g/dL Troponin I High Sensitivity 263 *H </=34 ng/L Urine Color Yellow Yellow Urine Clarity Clear Clear Urine pH 5.5 5.0-9.0 Urine Specific [place] 1.020 1.001-1.035 Urine Protein Trace H Negative Urine Ketones Negative Negative Urine Blood Negative Negative /uL Urine Nitrite 2+ H Negative Urine Bilirubin Negative Negative Urine Urobilinogen Normal Negative mg/dL Urine Leukocyte Esterase Negative Negative /uL Urine RBC 1 0 - 4 /hpf Urine Microscopic WBC 2 0-5 /HPF Urine Squamous Epithelial Cells Few <5 /hpf Urine Bacteria Few H None Seen /hpf Urine Hyaline Casts Few 0 - 2 /lpf Urine Mucus Few None Seen Urine Glucose Normal Normal mg/dL Blood Gas Specimen Type Arterial Blood Gas Sample Site Right radial Blood Gas Patient Temperature 37.0 Arterial Blood Date Drawn [id number] Arterial Blood pH 7.345 L 7.350-7.450 Arterial Blood Partial Pressure CO2 52.7 H 32.0-45.0 mmHg Arterial Blood Partial Pressure O2 83.7 83.0-108.0 mmHg Arterial Blood HCO3 28.1 H 21.0-28.0 mmol/L Arterial Blood Oxygen Saturation 95.4 94.0-98.0 % Arterial Blood Base Excess 1.4 -2.0-3.0 mmol/L Arterial Blood Oxyhemoglobin 92.8 L 94.0-98.0 % Arterial Blood Carboxyhemoglobin 2.1 H 0.5-1.5 % Arterial Blood Methemoglobin 0.6 0.0-1.5 % Mohsen Test Yes Blood Gas Total Hemoglobin 14.20 12.0-16.0 g/dL Blood Gas Set Respiration Rate 12.0 Blood Gas Modality Mask - bipap FiO2 % 40.0 Blood Gas EPAP 5 Blood Gas IPAP 12 Test 07/03/24 21:38 07/03/24 21:20 Range/Units Influenza Type A Antigen Negative Negative Influenza Type B Antigen Negative Negative SARS-CoV-2 Antigen (Rapid) Negative NEGATIVE D-Dimer, Quantitative 3.51 H 0.0-0.49 mg/L FEU Lactic Acid Level 0.9 0.4-2.0 mmol/L B-Type Natriuretic Peptide 376.99 0-100 pg/mL Assessment chf NOS morbid obesity nstemi copd hypoxia Plan/Recommendation start asa/ statin check echo cont bipap/ lasix prn not a candidate for invasive eval given large size pt is a [place] pt as well guarded prognosis ecg SR , reviewed Plan discussed with: Patient ROCHEPALOMA MD Jul 04, 2024 09:38
[2024-07-04] MEDS ORDERED: FUROSEMIDE 40 MG/4 ML VIAL IV SCH (10:00)
[2024-07-04] MEDS ORDERED: CARVEDILOL 12.5 MG TAB PO SCH (10:00)
[2024-07-04] MEDS ORDERED: FAMOTIDINE (10MG/ML) 2ML VL IV SCH (10:00)
[2024-07-04] MEDS ORDERED: APIXABAN 5 MG TAB PO SCH (10:00)
[2024-07-04] MEDS: ATORVASTATIN 20 MG TAB PO SCH (21:22)
[2024-07-04] MEDS ORDERED: ATORVASTATIN 20 MG TAB PO SCH (22:00)
[2024-07-05] VITALS (16 sets, daily range): BP systolic 110–138; BP diastolic 56–79; PULSE 62–89; RESP 16–23; TEMP 97.8–98.7; O2SAT 92–97
[2024-07-05] MEDS: cefTRIAXone 1GM/50ML D5W 50 ML IV SCH (04:42)
[2024-07-05] MEDS: AZITHROMYCIN 500MG/ 250ML 250 ML IV SCH (05:27)
[2024-07-05 06:20] LABS: Basophils # (auto) 0.1 10 ^3/uL (0-0.2); Basophils % (auto) 0.5 % (0.0-2.0); Eosinophils # (auto) 0 10 ^3/uL (0-0.8); Hematocrit 40.1 % (36.0-46.0); Hemoglobin 13.5 g/dL (12.2-16.2); Lymphocytes # (auto) 0.6 10 ^3/uL (0.4-5.4); Lymphocytes % (auto) 2.9 % (10.0-50.0); Mean Corpuscular Hemoglobin 29.8 pg (28.0-32.0); Mean Corpuscular Hgb Conc. 33.5 g/dL (32.0-36.0); Mean Corpuscular Volume 88.9 fL (80.0-100.0); Monocytes # (auto) 0.5 10 ^3/uL (0-1.3); Monocytes % (auto) 2.8 % (0.0-12.0); Neutrophils # (auto) 18.2 10 ^3/uL (1.6-8.6); Neutrophils % (auto) 93.8 % (37.0-80.0); Nucleated Red Blood Cells % 0.1 %; Platelet Count (auto) 258 10^3/uL (140-450); Red Blood Cells 4.51 10^6/uL (4.0-5.20); Red Cell Distribution Width 16.2 % (11.8-14.3); White Blood Cell 19.5 10^3/uL (4.4-10.8)
[2024-07-05 06:50] LABS: Alanine Aminotransferase 39 U/L (7-40); Albumin 4.1 g/dL (3.2-4.8); Alkaline Phosphatase 96 U/L (46-116); Anion Gap 6 (5-15); Aspartate Aminotransferase 38 U/L (13-40); BUN/Creatinine Ratio 22.4 (10.0-20.0); Bilirubin, Total 0.4 mg/dL (0.2-1.0); Blood Urea Nitrogen 17 mg/dL (9-23); Calcium 9.8 mg/dL (8.7-10.4); Chloride 99 mmol/L (98-107); Potassium 4.8 mmol/L (3.5-5.1); Sodium 139 mmol/L (136-145); Total Protein 6.9 g/dL (5.7-8.2)
[2024-07-05 06:53] LABS: Carbon Dioxide 34 mmol/L (20-31); Glucose 133 mg/dL (74-106)
[2024-07-05] MEDS ORDERED: cefTRIAXone 1GM/50ML D5W 50 ML IV SCH (09:00)
--- NOTE | 2024-07-05 09:39 | DVHPN2 ---
Progress Note Date Seen: Jul 05, 2024 Medical Necessity Reason Pt with a Central, PICC or Fol: No Subjective Other Systems: diuresed well Objective vital signs Vital Sign Date Time Temp Pulse Resp B/P (MAP) Pulse Ox O2 Delivery O2 Flow Rate FiO2 07/05/24 09:18 75 110/66 07/05/24 08:58 98.4 16 94 98.4 07/05/24 06:57 Oxymizer 9.0 07/05/24 06:57 N/A Total Intake and Output 07/04/24 07/04/24 07/05/24 15:00 23:00 07:00 Intake Total 455 ml Output Total 4500 ml 550 ml Balance -4500 ml -95 ml medications Current Medications Medications Dose Ordered Sig/Edgard Route Start Time Stop Time Status Last Admin Dose Admin Ceftriaxone Sodium 50 ml @ 100 mls/hr Q24H IV 07/05/24 05:00 07/05/24 04:42 100 MLS/HR Albuterol 2.5 mg Q4HPRN PRN NEB 07/04/24 04:45 Apixaban 5 mg BID PO 07/04/24 10:00 07/05/24 09:16 5 MG Atorvastatin Calcium 20 mg HS PO 07/04/24 22:00 07/04/24 21:22 20 MG Carvedilol 12.5 mg Q12HR PO 07/04/24 10:00 07/05/24 09:18 12.5 MG Docusate Sodium 100 mg BIDPRN PRN PO 07/04/24 04:45 Famotidine 20 mg Q12HR IV 07/04/24 10:00 07/05/24 09:16 20 MG Furosemide 40 mg DAILY IV 07/04/24 10:00 07/05/24 09:17 40 MG Hydralazine HCl 10 mg Q6HP PRN IV 07/04/24 04:45 Ipratropium [place] 0.5 mg Q4HPRN PRN NEB 07/04/24 04:45 Methylprednisolone Sodium Succinate 40 mg Q8HR IV 07/04/24 06:00 07/05/24 05:26 40 MG Morphine Sulfate 2 mg Q30M PRN IV 07/04/24 04:45 Nitroglycerin 0.4 mg Q5MINP PRN SL 07/04/24 04:45 Ondansetron HCl 4 mg Q4HP PRN IV 07/04/24 04:45 Sodium Chloride 10 ml Q8HR IV 07/04/24 06:00 07/05/24 05:14 10 ML Azithromycin 250 ml @ 125 mls/hr Q24H IV 07/05/24 06:00 07/05/24 05:27 125 MLS/HR Examination: GENERAL:Abnormal, HEENT:Abnormal, LUNGS:Abnormal, CVS:Abnormal, ABDOMEN:Abnormal laboratory and microbiology Laboratory Tests 07/05/24 05:10 Test 07/05/24 05:10 Range/Units Serum Glucose 133 H 74-106 mg/dL Microbiology Date/Time Source Procedure Growth Status 07/03/24 21:20 Blood Blood Culture - Preliminary NO GROWTH AFTER 24 HOURS OF INCUBATION. Resulted Problem List/Assessment/Plan Problem List/Assessment/Plan chf NOS morbid obesity nstemi copd hypoxia Plan/Recommendation start asa/ statin check echo cont bipap/ lasix prn not a candidate for invasive eval given large size pt is a [place] pt as well guarded prognosis ecg SR , reviewed diuresed well overnight cont another day Plan discussed with: Patient Date of Service: Jul 05, 2024 Billing Provider: PALOMA ROCHE MD Common Visit Codes: NOT BILLABLE PALOMA ROCHE MD Jul 05, 2024 09:39
--- NOTE | 2024-07-05 11:19 | DVHPN2 ---
Progress Note Date Seen: Jul 05, 2024 Medical Necessity Reason Pt with a Central, PICC or Fol: Yes The following are medically ne: Arora Catheter Reason for arora catheter: Strict I&O Subjective Patient reports: No new complaints Review of Systems: HEENT:Normal, CVS:Normal, RESPIRATORY:Normal, GI:Normal, :Normal, MSK:Normal, NEURO:Normal Objective vital signs Vital Sign Date Time Temp Pulse Resp B/P (MAP) Pulse Ox O2 Delivery O2 Flow Rate FiO2 07/05/24 09:18 75 110/66 07/05/24 08:58 98.4 16 94 98.4 07/05/24 06:57 Oxymizer 9.0 07/05/24 06:57 N/A Total Intake and Output 07/04/24 07/04/24 07/05/24 15:00 23:00 07:00 Intake Total 455 ml Output Total 4500 ml 550 ml Balance -4500 ml -95 ml medications Current Medications Medications Dose Ordered Sig/Edgard Route Start Time Stop Time Status Last Admin Dose Admin Ceftriaxone Sodium 50 ml @ 100 mls/hr Q24H IV 07/05/24 05:00 07/05/24 04:42 100 MLS/HR Albuterol 2.5 mg Q4HPRN PRN NEB 07/04/24 04:45 Apixaban 5 mg BID PO 07/04/24 10:00 07/05/24 09:16 5 MG Atorvastatin Calcium 20 mg HS PO 07/04/24 22:00 07/04/24 21:22 20 MG Carvedilol 12.5 mg Q12HR PO 07/04/24 10:00 07/05/24 09:18 12.5 MG Docusate Sodium 100 mg BIDPRN PRN PO 07/04/24 04:45 Famotidine 20 mg Q12HR IV 07/04/24 10:00 07/05/24 09:16 20 MG Furosemide 40 mg DAILY IV 07/04/24 10:00 07/05/24 09:17 40 MG Hydralazine HCl 10 mg Q6HP PRN IV 07/04/24 04:45 Ipratropium [place] 0.5 mg Q4HPRN PRN NEB 07/04/24 04:45 Methylprednisolone Sodium Succinate 40 mg Q8HR IV 07/04/24 06:00 07/05/24 05:26 40 MG Morphine Sulfate 2 mg Q30M PRN IV 07/04/24 04:45 Nitroglycerin 0.4 mg Q5MINP PRN SL 07/04/24 04:45 Ondansetron HCl 4 mg Q4HP PRN IV 07/04/24 04:45 Sodium Chloride 10 ml Q8HR IV 07/04/24 06:00 07/05/24 05:14 10 ML Azithromycin 250 ml @ 125 mls/hr Q24H IV 07/05/24 06:00 07/05/24 05:27 125 MLS/HR Examination: GENERAL:Normal, HEENT:Normal, NECK:Normal, LUNGS:Normal, LUNGS:Abnormal (ON OXYGEN AT 9 LITERS), CVS:Normal, ABDOMEN:Normal, MSK:Normal, MSK:Abnormal (EDEMA++), SKIN:Normal, NEURO:Normal, :Normal laboratory and microbiology Laboratory Tests 07/05/24 05:10 Test 07/05/24 05:10 Range/Units Serum Glucose 133 H 74-106 mg/dL Microbiology Date/Time Source Procedure Growth Status 07/03/24 22:25 Voided Urine Urine Culture - Preliminary Resulted 07/03/24 21:20 Blood Blood Culture - Preliminary NO GROWTH AFTER 24 HOURS OF INCUBATION. 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 heart failure: lasix iv #3 copd with exacerbation #4 tobacco abuse: advised to quit, refused nicotine patch- time spent 11 mins #5 sleep apnea #6 morbid obesity #7 h/o pe: on eliquis #8 uti #9 ?pneumonia- gram positive/neg: iv antibiotics #10 nstemi: per cardiology #11 htn Plan discussed with: Patient My Orders My Orders Orders - PASHA EDMONDS MD Procedure Category Date Status Time Carvedilol Tablet PHA 07/05/24 Transmitted (Coreg Tablet) 22:00 Furosemide Injection PHA 07/05/24 Transmitted (Lasix Injection) 22:00 Albuterol Medneb PHA 07/05/24 Transmitted (Ventolin Medneb) 12:00 Ipratropium Medneb PHA 07/05/24 Transmitted (Atrovent Medneb) 12:00 Basic Metabolic Panel LAB 07/06/24 Verified 06:00 Complete Blood Count LAB 07/06/24 Verified 06:00 Magnesium LAB 07/06/24 Verified 05:00 Chest Portable XY 07/06/24 Transmitted 06:00 Critical Care Time (mins): 41 (critical care time 41 mins) Date of Service: Jul 05, 2024 Billing Provider: PASHA EDMONDS MD Common Visit Codes: [id number] CARE 30-74 MIN PASHA EDMONDS MD Jul 05, 2024 11:19
[2024-07-05] MEDS: ALBUTEROL SULF 2.5 MG/0.5ML(0.5%) NEB SOLN NEB SCH (12:00)
[2024-07-05] MEDS: IPRATROPIUM BROM 0.5 MG/2.5ML INH SOL NEB SCH (12:00)
[2024-07-05] MEDS: IPRATROPIUM BROM 0.5 MG/2.5ML INH SOL NEB PRN (12:03)
[2024-07-05] MEDS: ALBUTEROL SULF 2.5 MG/0.5ML(0.5%) NEB SOLN NEB PRN (12:03)
--- NOTE | 2024-07-05 15:14 | DVHSR ---
APPROVED REPORT EXAM: Two-dimensional and M-mode echocardiogram with Doppler and color Doppler. Blood Pressure: 110/66 mmHg INDICATION CHF RISK FACTORS Height: 66, Weight: 370 DIMENSIONS LVDd (3.8-5.7cm)LA (2D)5.5 (1.9-4.0cm)Aortic Root3.0 (2.0-3.7cm) LVDs (2.5-4.0cm)LA (MM) (1.9-4.0cm)Aortic Cusp Exc1.9 (1.5-2.0cm) EF (%) 54.0 (55-70%)Rt. Atrium5.2 (1.9-4.0cm)Asc. Aorta cm Mitral Valve MitralMitral Stenosis E wave0.79m/sMV Mean GR.mmHg A wave0.78m/sMV Peak GR.mmHg E/A ratio1.02D MVAcm2 DECEL [id number] 1/2 Llhd20gd IVRTmsDop MVA4.04cm2 Aortic Valve Aortic ValveAortic Stenosis V11.13m/Luz Elena Mean GR.8mmHg V21.84m/Luz Elena Peak GR.14mmHg LVOT Diameter2.1 (1.8-2.4cm)Doppler AVA2.13cm2 Tricuspid Valve TR Velocity3.73m/s [id number] Other Information Technically limited study due to body habitus. Conclusion lvef 35-40% by visual estimate dilated LV cavity RV dysfunction noted biatrial enlargement mild to moderate tricuspid regurg
[2024-07-05] MEDS: FUROSEMIDE 40 MG/4 ML VIAL IV SCH (17:34)
[2024-07-05] MEDS: CARVEDILOL 3.125 MG TAB PO SCH (21:22)
[2024-07-06] VITALS (21 sets, daily range): BP systolic 105–127; BP diastolic 55–81; PULSE 64–86; RESP 17–24; TEMP 97.2–98.3; O2SAT 89–100
[2024-07-06 06:50] LABS: Anion Gap 5 (5-15); Potassium 3.8 mmol/L (3.5-5.1); Sodium 138 mmol/L (136-145)
[2024-07-06 06:51] LABS: Calcium 9.5 mg/dL (8.7-10.4)
[2024-07-06 06:52] LABS: Basophils # (auto) 0.1 10 ^3/uL (0-0.2); Basophils % (auto) 0.5 % (0.0-2.0); Eosinophils # (auto) 0 10 ^3/uL (0-0.8); Eosinophils % (auto) 0.1 % (0.0-7.0); Hematocrit 41.6 % (36.0-46.0); Hemoglobin 13.7 g/dL (12.2-16.2); Lymphocytes # (auto) 2.3 10 ^3/uL (0.4-5.4); Lymphocytes % (auto) 14.5 % (10.0-50.0); Mean Corpuscular Hemoglobin 29.5 pg (28.0-32.0); Mean Corpuscular Volume 89.4 fL (80.0-100.0); Monocytes # (auto) 0.8 10 ^3/uL (0-1.3); Monocytes % (auto) 5.2 % (0.0-12.0); Neutrophils # (auto) 12.8 10 ^3/uL (1.6-8.6); Neutrophils % (auto) 79.7 % (37.0-80.0); Nucleated Red Blood Cells % 0.1 %; Platelet Count (auto) 255 10^3/uL (140-450); Red Blood Cells 4.66 10^6/uL (4.0-5.20); Red Cell Distribution Width 16.4 % (11.8-14.3); White Blood Cell 16.1 10^3/uL (4.4-10.8)
[2024-07-06 06:56] LABS: BUN/Creatinine Ratio 23.4 (10.0-20.0); Blood Urea Nitrogen 22 mg/dL (9-23); Magnesium 1.9 mg/dL (1.6-2.6)
[2024-07-06 07:08] LABS: Carbon Dioxide 38 mmol/L (20-31); Chloride 95 mmol/L (98-107); Glucose 119 mg/dL (74-106)
--- NOTE | 2024-07-06 08:22 | ECG ---
[facility] Test Date: 2024-07-03 Test Time: 21:03:46 Pat Name: JESSICA MURRELL Department: ER Room: 0203T A Gender: F [employer]: : 1975 Requested By: JADEN NUÑEZ Order Number: [id number] Reading MD: Stanislav Young Measurements Intervals [place] Rate: 82 P: 40 [place]: 163 QRS: -40 QRSD: 116 T: 89 QT: 436 QTc: 510 Interpretive Statements Sinus rhythm Probable left atrial enlargement Incomplete left bundle branch block Left ventricular hypertrophy Electronically Signed On 07-07-2024 16:48:06 PDT by Stanislav Young Please click the below link to view image of tracing.
--- NOTE | 2024-07-06 08:56 | CONS ---
Pharmacy Clinical Information: From Heart Failure Fallout Report on CQM Application, Dave Bond is a 49 year old female with PMH of COPD, CHF, and HTN. Her home medications for heart failure include carvedilol, lisinopril, rishabh nolactone, hydralazine, and furosemide. Her inpatient medications include carvedilol, hydralazine, and furosemide. SGLT2i not recommended at this time due to UTI. ACEi/ARB/ARNi and MRA not recommended at this time due to hypotension. Consider switching carvedilol to metoprolol succinate due to COPD. PRITESH ARMANDO PHARMACIST Jul 06, 2024 08:56
--- NOTE | 2024-07-06 09:24 | DVH ---
INDICATION: CHF TECHNIQUE: Single frontal view of the chest was obtained COMPARISON: XY CHEST XRAY 1 VIEW on DOS: 07/03/24, XY CHEST XRAY 1 VIEW on DOS: 07/03/24 FINDINGS: Lines and Tubes: None Lungs: Bilateral pulmonary vascular congestion Pleura: No effusion. No pneumothorax. Cardiomediastinal contours: Cardiomegaly Bones: No acute osseous abnormality. IMPRESSION: 1. Findings suggest congestive failure can not entirely exclude pneumonia
--- NOTE | 2024-07-06 10:06 | DVHPN2 ---
Progress Note Date Seen: Jul 06, 2024 Medical Necessity Reason Pt with a Central, PICC or Fol: Yes The following are medically ne: Arora Catheter Reason for arora catheter: Strict I&O Subjective Patient reports: No new complaints Review of Systems: HEENT:Normal, CVS:Normal, RESPIRATORY:Normal, GI:Normal, :Normal, MSK:Normal, NEURO:Normal Objective vital signs Vital Sign Date Time Temp Pulse Resp B/P (MAP) Pulse Ox O2 Delivery O2 Flow Rate FiO2 07/06/24 09:00 98.0 80 18 115/72 (86) 97 98.0 07/06/24 02:00 Nasal BiPAP Mask 45 07/05/24 20:00 9 Total Intake and Output 07/05/24 07/05/24 07/06/24 15:00 23:00 07:00 Intake Total 250 ml 1736 ml 400 ml Output Total 2200 ml 1500 ml Balance 250 ml -464 ml -1100 ml medications Current Medications Medications Dose Ordered Sig/Edgard Route Start Time Stop Time Status Last Admin Dose Admin Ceftriaxone Sodium 50 ml @ 100 mls/hr Q24H IV 07/05/24 05:00 07/06/24 04:43 100 MLS/HR Albuterol 2.5 mg Q4HPRN PRN NEB 07/04/24 04:45 07/05/24 12:03 2.5 MG Apixaban 5 mg BID PO 07/04/24 10:00 07/05/24 21:23 5 MG Atorvastatin Calcium 20 mg HS PO 07/04/24 22:00 07/05/24 21:23 20 MG Docusate Sodium 100 mg BIDPRN PRN PO 07/04/24 04:45 Famotidine 20 mg Q12HR IV 07/04/24 10:00 07/05/24 21:23 20 MG Hydralazine HCl 10 mg Q6HP PRN IV 07/04/24 04:45 Ipratropium [place] 0.5 mg Q4HPRN PRN NEB 07/04/24 04:45 07/05/24 12:03 0.5 MG Morphine Sulfate 2 mg Q30M PRN IV 07/04/24 04:45 Nitroglycerin 0.4 mg Q5MINP PRN SL 07/04/24 04:45 Ondansetron HCl 4 mg Q4HP PRN IV 07/04/24 04:45 Sodium Chloride 10 ml Q8HR IV 07/04/24 06:00 07/06/24 06:01 10 ML Azithromycin 250 ml @ 125 mls/hr Q24H IV 07/05/24 06:00 07/06/24 06:04 125 MLS/HR Carvedilol 3.125 mg Q12HR PO 07/05/24 22:00 07/05/24 21:22 3.125 MG Furosemide 40 mg BIDD IV 07/05/24 18:00 07/06/24 06:01 40 MG Albuterol 2.5 mg Q6HWA NEB 07/05/24 12:00 07/06/24 06:33 2.5 MG Ipratropium [place] 0.5 mg Q6HWA NEB 07/05/24 12:00 07/06/24 06:33 0.5 MG Examination: GENERAL:Normal, HEENT:Normal, NECK:Normal, LUNGS:Normal, LUNGS:Abnormal (on oxymizer), CVS:Normal, ABDOMEN:Normal, MSK:Normal, SKIN:Normal, NEURO:Normal, :Normal laboratory and microbiology Laboratory Tests 07/06/24 05:04 Test 07/06/24 05:04 Range/Units Serum Glucose 119 H 74-106 mg/dL Microbiology Date/Time Source Procedure Growth Status 07/03/24 22:25 Voided Urine Urine Culture - Final Escherichia coli Complete 07/03/24 21:20 Blood Blood Culture - Preliminary NO GROWTH AFTER 48 HOURS OF INCUBATION. 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 heart failure: lasix iv, metolazone #3 copd with exacerbation #4 tobacco abuse: advised to quit, refused nicotine patch- time spent 11 mins #5 sleep apnea: on bipap #6 morbid obesity #7 h/o pe: on eliquis #8 uti: due to e coli, iv rocephin #9 ?pneumonia- gram positive/neg: iv antibiotics #10 nstemi: per cardiology #11 htn advance care planning- full code- time spent 19 mins Plan discussed with: Patient, Son My Orders My Orders Orders - PASHA EDMONDS MD Procedure Category Date Status Time Furosemide Injection PHA 07/05/24 In Process (Lasix Injection) 18:00 Albuterol Medneb PHA 07/05/24 In Process (Ventolin Medneb) 12:00 Ipratropium Medneb PHA 07/05/24 In Process (Atrovent Medneb) 12:00 Chest Portable XY 07/06/24 Resulted 06:00 Urine Bacterial JASE 07/05/24 Logged Culture 11:17 Carvedilol Tablet PHA 07/05/24 In Process (Coreg Tablet) 22:00 Metolazone (Zaroxolyn) PHA 07/06/24 Verified 10:15 Metolazone (Zaroxolyn) PHA 07/07/24 Verified 10:00 Maintain Fluid ADOLFO 07/06/24 Verified Restrictions 10:01 Magnesium Nick PHA 07/06/24 Verified 11:00 Basic Metabolic Panel LAB 07/07/24 Verified 06:00 Magnesium LAB 07/07/24 Verified 05:00 Date of Service: Jul 06, 2024 Billing Provider: PASHA EDMONDS MD Common Visit Codes: [id number] INP/OBS CARE(HIGH) Secondary Visit Codes: [id number] CHNG SMOKING >10MIN, [id number] CARE PLAN 30 MINUTES PASHA EDMONDS MD Jul 06, 2024 10:06
[2024-07-06] MEDS: MAGNESIUM SULFATE 1GM/100ML 100 ML IV SCH (10:50)
[2024-07-06] MEDS: metOLazone 5 MG TAB PO ONE (10:52)
[2024-07-06] MEDS: ONDANSETRON HCL 4 MG/2 ML VIAL IV PRN (14:56)
[2024-07-07] VITALS (17 sets, daily range): BP systolic 98–119; BP diastolic 57–82; PULSE 71–94; RESP 18–28; TEMP 95.9–98.4; O2SAT 84–97
[2024-07-07] MEDS: PANTOPRAZOLE 40 MG TAB PO SCH (06:32)
[2024-07-07 08:08] LABS: Potassium 3.8 mmol/L (3.5-5.1)
[2024-07-07 08:09] LABS: Anion Gap 7 (5-15)
[2024-07-07 08:11] LABS: Carbon Dioxide 38 mmol/L (20-31); Chloride 87 mmol/L (98-107); Sodium 132 mmol/L (136-145)
[2024-07-07 08:14] LABS: BUN/Creatinine Ratio 20.7 (10.0-20.0); Blood Urea Nitrogen 18 mg/dL (9-23); Glucose 119 mg/dL (74-106); Magnesium 2.1 mg/dL (1.6-2.6)
[2024-07-07] MEDS: metOLazone 5 MG TAB PO SCH ×2 (09:25→10:00)
--- NOTE | 2024-07-07 09:58 | DVHPN2 ---
Progress Note Date Seen: Jul 07, 2024 Medical Necessity Reason Pt with a Central, PICC or Fol: Yes The following are medically ne: Arora Catheter Reason for arora catheter: Strict I&O Subjective Patient reports: No new complaints Review of Systems: HEENT:Normal, CVS:Normal, RESPIRATORY:Normal, GI:Normal, :Normal, MSK:Normal, NEURO:Normal Objective vital signs Vital Sign Date Time Temp Pulse Resp B/P (MAP) Pulse Ox O2 Delivery O2 Flow Rate FiO2 07/07/24 09:26 77 106/52 07/07/24 09:11 98.4 18 88 98.4 07/07/24 08:00 Oxymizer 15 N/A Total Intake and Output 07/06/24 07/06/24 07/07/24 15:00 23:00 07:00 Intake Total 450 ml 947 ml 417 ml Output Total 6600 ml 3950 ml Balance 450 ml -5653 ml -3533 ml medications Current Medications Medications Dose Ordered Sig/Edgard Route Start Time Stop Time Status Last Admin Dose Admin Ceftriaxone Sodium 50 ml @ 100 mls/hr Q24H IV 07/05/24 05:00 07/07/24 05:03 100 MLS/HR Albuterol 2.5 mg Q4HPRN PRN NEB 07/04/24 04:45 07/06/24 23:17 2.5 MG Apixaban 5 mg BID PO 07/04/24 10:00 07/06/24 10:50 5 MG Atorvastatin Calcium 20 mg HS PO 07/04/24 22:00 07/06/24 22:24 20 MG Docusate Sodium 100 mg BIDPRN PRN PO 07/04/24 04:45 Hydralazine HCl 10 mg Q6HP PRN IV 07/04/24 04:45 Ipratropium [place] 0.5 mg Q4HPRN PRN NEB 07/04/24 04:45 07/07/24 03:54 0.5 MG Morphine Sulfate 2 mg Q30M PRN IV 07/04/24 04:45 Nitroglycerin 0.4 mg Q5MINP PRN SL 07/04/24 04:45 Ondansetron HCl 4 mg Q4HP PRN IV 07/04/24 04:45 07/07/24 09:26 4 MG Sodium Chloride 10 ml Q8HR IV 07/04/24 06:00 07/07/24 06:34 10 ML Carvedilol 3.125 mg Q12HR PO 07/05/24 22:00 07/07/24 09:26 3.125 MG Furosemide 40 mg BIDD IV 07/05/24 18:00 07/07/24 06:35 40 MG Albuterol 2.5 mg Q6HWA NEB 07/05/24 12:00 07/07/24 06:06 2.5 MG Ipratropium [place] 0.5 mg Q6HWA NEB 07/05/24 12:00 07/07/24 06:06 0.5 MG Pantoprazole Sodium 40 mg DAILY@0600 PO 07/07/24 06:00 07/07/24 06:32 40 MG Metolazone 2.5 mg DAILY PO 07/07/24 10:00 UNV Spironolactone 50 mg DAILY PO 07/07/24 10:00 UNV Examination: GENERAL:Normal, HEENT:Normal, NECK:Normal, LUNGS:Normal, CVS:Normal, ABDOMEN:Normal, MSK:Normal, MSK:Abnormal (EDEMA+), SKIN:Normal, NEURO:Normal, :Normal laboratory and microbiology Laboratory Tests 07/07/24 07:23 07/06/24 05:04 Test 07/07/24 07:23 Range/Units Serum Glucose 119 H 74-106 mg/dL Microbiology Date/Time Source Procedure Growth Status 07/03/24 22:25 Voided Urine Urine Culture - Final Escherichia coli Complete 07/03/24 21:20 Blood Blood Culture - Preliminary NO GROWTH AFTER 72 HOURS OF INCUBATION. 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 heart failure: lasix iv, metolazone, aldactone #3 copd with exacerbation #4 tobacco abuse: advised to quit, refused nicotine patch- time spent 11 mins #5 sleep apnea: on bipap #6 morbid obesity #7 h/o pe: on eliquis #8 uti: due to e coli, iv rocephin #9 ?pneumonia- gram positive/neg: iv antibiotics #10 nstemi: per cardiology #11 htn advance care planning- full code- time spent 19 mins Plan discussed with: Patient My Orders My Orders Orders - PASHA EDMONDS MD Procedure Category Date Status Time Maintain Fluid ADOLFO 07/06/24 In Process Restrictions 10:01 Pantoprazole Tablet PHA 07/07/24 In Process (Protonix Tablet) 06:00 Metolazone (Zaroxolyn) PHA 07/07/24 Logged 10:00 Spironolactone PHA 07/07/24 Logged (Aldactone) 10:00 Basic Metabolic Panel LAB 07/08/24 Verified 06:00 Complete Blood Count LAB 07/08/24 Verified 06:00 Chest Portable XY 07/08/24 Transmitted 06:00 Date of Service: Jul 07, 2024 Billing Provider: PASHA EDMONDS MD Common Visit Codes: [id number] INP/OBS CARE(HIGH) PASHA EDMONDS MD Jul 07, 2024 09:58
[2024-07-07 10:15] LABS: Base Excess 9.8 mmol/L (-2.0-3.0)
[2024-07-07] MEDS: SPIRONOLACTONE 25 MG TAB PO SCH (11:11)
[2024-07-08] VITALS (16 sets, daily range): BP systolic 95–126; BP diastolic 54–77; PULSE 62–97; RESP 17–20; TEMP 96.3–98.1; O2SAT 88–97
[2024-07-08 06:04] LABS: Basophils # (auto) 0.1 10 ^3/uL (0-0.2); Basophils % (auto) 1.2 % (0.0-2.0); Eosinophils # (auto) 0.3 10 ^3/uL (0-0.8); Eosinophils % (auto) 2.3 % (0.0-7.0); Lymphocytes # (auto) 1.7 10 ^3/uL (0.4-5.4); Lymphocytes % (auto) 15.4 % (10.0-50.0); Mean Corpuscular Hemoglobin 29.4 pg (28.0-32.0); Mean Corpuscular Hgb Conc. 33.3 g/dL (32.0-36.0); Mean Corpuscular Volume 88.3 fL (80.0-100.0); Monocytes # (auto) 0.9 10 ^3/uL (0-1.3); Monocytes % (auto) 8.4 % (0.0-12.0); Neutrophils % (auto) 72.7 % (37.0-80.0); Nucleated Red Blood Cells % 0.6 %; Platelet Count (auto) 257 10^3/uL (140-450); Red Blood Cells 5.78 10^6/uL (4.0-5.20); Red Cell Distribution Width 16.1 % (11.8-14.3); White Blood Cell 10.9 10^3/uL (4.4-10.8)
[2024-07-08 06:14] LABS: Potassium 3.8 mmol/L (3.5-5.1)
[2024-07-08 06:15] LABS: Anion Gap 8 (5-15)
[2024-07-08 06:20] LABS: BUN/Creatinine Ratio 25.7 (10.0-20.0)
[2024-07-08 06:36] LABS: Blood Urea Nitrogen 26 mg/dL (9-23); Calcium 10.4 mg/dL (8.7-10.4); Carbon Dioxide 39 mmol/L (20-31); Chloride 85 mmol/L (98-107); Glucose 114 mg/dL (74-106); Sodium 132 mmol/L (136-145)
--- NOTE | 2024-07-08 10:12 | DVHPN2 ---
Progress Note Date Seen: Jul 08, 2024 Medical Necessity Reason Pt with a Central, PICC or Fol: Yes The following are medically ne: Arora Catheter Reason for arora catheter: Strict I&O Subjective Patient reports: No new complaints Review of Systems: HEENT:Normal, CVS:Normal, RESPIRATORY:Normal, GI:Normal, :Normal, MSK:Normal, NEURO:Normal Objective vital signs Vital Sign Date Time Temp Pulse Resp B/P (MAP) Pulse Ox O2 Delivery O2 Flow Rate FiO2 07/08/24 09:20 111/52 07/08/24 09:19 93 07/08/24 08:43 98.0 17 96 98.0 07/08/24 05:52 Oxymizer 15.0 07/08/24 05:52 N/A Total Intake and Output 07/07/24 07/07/24 07/08/24 15:00 23:00 07:00 Intake Total 560 ml 440 ml Output Total 1550 ml 1500 ml Balance -990 ml -1060 ml medications Current Medications Medications Dose Ordered Sig/Edgard Route Start Time Stop Time Status Last Admin Dose Admin Ceftriaxone Sodium 50 ml @ 100 mls/hr Q24H IV 07/05/24 05:00 07/08/24 05:46 100 MLS/HR Albuterol 2.5 mg Q4HPRN PRN NEB 07/04/24 04:45 07/08/24 02:28 2.5 MG Apixaban 5 mg BID PO 07/04/24 10:00 07/07/24 22:38 5 MG Atorvastatin Calcium 20 mg HS PO 07/04/24 22:00 07/07/24 22:38 20 MG Docusate Sodium 100 mg BIDPRN PRN PO 07/04/24 04:45 Hydralazine HCl 10 mg Q6HP PRN IV 07/04/24 04:45 Ipratropium [place] 0.5 mg Q4HPRN PRN NEB 07/04/24 04:45 07/08/24 02:29 0.5 MG Morphine Sulfate 2 mg Q30M PRN IV 07/04/24 04:45 Nitroglycerin 0.4 mg Q5MINP PRN SL 07/04/24 04:45 Ondansetron HCl 4 mg Q4HP PRN IV 07/04/24 04:45 07/08/24 00:31 4 MG Sodium Chloride 10 ml Q8HR IV 07/04/24 06:00 07/08/24 05:46 10 ML Carvedilol 3.125 mg Q12HR PO 07/05/24 22:00 07/08/24 09:19 3.125 MG Furosemide 40 mg BIDD IV 07/05/24 18:00 07/07/24 17:52 40 MG Albuterol 2.5 mg Q6HWA NEB 07/05/24 12:00 07/08/24 05:39 2.5 MG Ipratropium [place] 0.5 mg Q6HWA NEB 07/05/24 12:00 07/08/24 05:39 0.5 MG Pantoprazole Sodium 40 mg DAILY@0600 PO 07/07/24 06:00 07/08/24 05:46 40 MG Metolazone 2.5 mg DAILY PO 07/07/24 10:00 07/08/24 09:20 2.5 MG Spironolactone 50 mg DAILY PO 07/07/24 10:00 07/08/24 09:21 50 MG Examination: GENERAL:Normal, HEENT:Normal, NECK:Normal, LUNGS:Normal, LUNGS:Abnormal (ON 15 LITERS OXYMIZER), CVS:Normal, ABDOMEN:Normal, MSK:Normal, SKIN:Normal, NEURO:Normal, :Normal laboratory and microbiology Laboratory Tests 07/08/24 04:58 Test 07/08/24 04:58 Range/Units Serum Glucose 114 H 74-106 mg/dL Microbiology Date/Time Source Procedure Growth Status 07/03/24 22:25 Voided Urine Urine Culture - Final Escherichia coli Complete 07/03/24 21:20 Blood Blood Culture - Preliminary NO GROWTH AFTER 72 HOURS OF INCUBATION. 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 heart failure: lasix iv, metolazone, aldactone #3 copd with exacerbation #4 tobacco abuse: advised to quit, refused nicotine patch- time spent 11 mins #5 sleep apnea: on bipap #6 morbid obesity #7 h/o pe: on eliquis #8 uti: due to e coli, iv rocephin #9 ?pneumonia- gram positive/neg: iv antibiotics #10 nstemi: per cardiology #11 htn long discussion wit mother- reviewed labs/xrays-explained high risk of if she leaves AMA advance care planning- full code- time spent 19 mins Plan discussed with: Patient, Other (mother) Dietary Evaluation Review Comments: Quit smoking, Weight reducing diet and after D/C counseling Expected Outcomes/Goals: stop smoking, improved nutrient utilization and improved health Date of Service: Jul 08, 2024 Billing Provider: PASHA EDMONDS MD Common Visit Codes: [id number] INP/OBS CARE(HIGH) Secondary Visit Codes: [id number] CARE PLAN 30 MINUTES PASHA EDMONDS MD Jul 08, 2024 10:12
[2024-07-08] MEDS ORDERED: methylPREDNISolone SOD SUCC 40 MG/ML VL IM ONE (10:15)
--- NOTE | 2024-07-08 10:59 | DVH ---
EXAM: XY CHEST PORTABLE Indication: CHF Technique: Single frontal view of the chest was obtained Comparison: XY CHEST PORTABLE on DOS: 07/06/24, XY CHEST XRAY 1 VIEW on DOS: 07/03/24 FINDINGS: Lines and Tubes: None Lungs: No focal consolidation. Pulmonary edema. Pleura: No effusion. No pneumothorax. Cardiomediastinal contours: Cardiomegaly. Bones: No acute osseous abnormality. IMPRESSION: Cardiomegaly with pulmonary edema.
[2024-07-08] MEDS: PIPERACILLIN-TAZOB 3.375GM 100 ML IV ONE (11:55)
[2024-07-08] MEDS: POTASSIUM CHL 20 Meq TABLET PO ONE (11:55)
[2024-07-08] MEDS: methylPREDNISolone SOD SUCC 125 MG/2 ML VL IV ONE (11:56)
[2024-07-08] MEDS: PIPERACILLIN-TAZOB 3.375GM 100 ML IV SCH (14:03)
[2024-07-08] MEDS: methylPREDNISolone SOD SUCC 125 MG/2 ML VL IV SCH (21:34)
[2024-07-08] MEDS: DOCUSATE SOD 100 MG CAP PO PRN (21:35)
[2024-07-08] MEDS ORDERED: methylPREDNISolone SOD SUCC 40 MG/ML VL IV SCH (22:00)
[2024-07-09] VITALS (20 sets, daily range): BP systolic 83–129; BP diastolic 56–77; PULSE 72–101; RESP 16–22; TEMP 97.5–98.2; O2SAT 87–97
[2024-07-09 06:22] LABS: Basophils # (auto) 0.1 10 ^3/uL (0-0.2); Basophils % (auto) 0.7 % (0.0-2.0); Eosinophils # (auto) 0 10 ^3/uL (0-0.8); Eosinophils % (auto) 0.1 % (0.0-7.0); Hematocrit 53.4 % (36.0-46.0); Hemoglobin 17.7 g/dL (12.2-16.2); Mean Corpuscular Hemoglobin 28.9 pg (28.0-32.0); Mean Corpuscular Hgb Conc. 33.2 g/dL (32.0-36.0); Monocytes # (auto) 0.2 10 ^3/uL (0-1.3); Monocytes % (auto) 1.3 % (0.0-12.0); Neutrophils # (auto) 13.2 10 ^3/uL (1.6-8.6); Neutrophils % (auto) 90.9 % (37.0-80.0); Nucleated Red Blood Cells % 0.6 %; Platelet Count (auto) 312 10^3/uL (140-450); Red Blood Cells 6.14 10^6/uL (4.0-5.20); Red Cell Distribution Width 15.9 % (11.8-14.3); White Blood Cell 14.5 10^3/uL (4.4-10.8)
[2024-07-09 06:33] LABS: Alanine Aminotransferase 28 U/L (7-40); Albumin 4.6 g/dL (3.2-4.8); Alkaline Phosphatase 99 U/L (46-116); Anion Gap 10 (5-15); Aspartate Aminotransferase 23 U/L (13-40); BUN/Creatinine Ratio 31.1 (10.0-20.0); Bilirubin, Total 0.7 mg/dL (0.2-1.0); Blood Urea Nitrogen 33 mg/dL (9-23); Calcium 10.8 mg/dL (8.7-10.4); Carbon Dioxide 35 mmol/L (20-31); Chloride 87 mmol/L (98-107); Glucose 136 mg/dL (74-106); Magnesium 2.4 mg/dL (1.6-2.6); Potassium 3.6 mmol/L (3.5-5.1); Sodium 132 mmol/L (136-145)
--- NOTE | 2024-07-09 09:19 | DVHPN2 ---
Subjective Patient was somewhat discouraged wants to leave. Patient also states that she was refusing to wear her BiPAP. Reviewed: Care Plan, H&P, Labs, Medications, Previous Orders Changes from previous H/P or p: No Changes General: Per HPI Eyes: No Pain, No Vision change, No Conjunctivae inflammation, No Eyelid inflammation, No Other, No Redness ENT: No Ear pain, No Ear discharge, No Nose pain, No Nose discharge, No Nose congestion, No Mouth pain, No Mouth swelling, No Throat pain, No Throat swelling, No Other Cardiovascular: Chest Pain; No Palpitations, No Orthopnea, No Paroxysmal Noc. Dyspnea, No Edema, No Lt Headedness, No Other Respiratory: No Cough, No Dry; Shortness of breath; No SOB with excertion; W heezing; No Hemoptysis, No Pleuritic Pain, No Sputum; Other (SOB at rest) Gastrointestinal: No Nausea, No Vomiting, No Abdominal Pain, No Diarrhea, No Constipation, No Melena, No Hematochezia, No Other Genitourinary: No Dysuria, No Frequency, No Incontinence, No Hematuria, No Retention, No Other Musculoskeletal: No other, No neck pain, No shoulder pain, No arm pain, No back pain, No hand pain, No leg pain, No foot pain Skin: No Rash, No Lesions, No Jaundice, No Bruising, No Other Objective Vitals Vital Signs Date Time Temp Pulse Resp B/P (MAP) Pulse Ox O2 Delivery O2 Flow Rate FiO2 07/09/24 06:12 86 20 94 07/09/24 06:03 Oxymizer 12 N/A 07/09/24 05:55 129/75 07/09/24 05:00 97.8 97.8 Intake/Output Intake and Output 07/09/24 07:00 Intake Total 750 ml Output Total 1500 ml Balance -750 ml Intake Oral 550 ml IV Total 200 ml Output Urine Total 1500 ml # Bowel Movements 1 General Appearance: Alert, Oriented X3, Cooperative, mild distress, Other (Morbid obesity) HEENT: Atraumatic, PERRLA Neck: Carotid [place]its [place] Cardiovascular: Normal S1, Normal S2 Abdomen: Normal bowel sounds, Soft, No tenderness Genitourinary: No Apparent Abnormalities (Dao catheter) Musculoskeletal: Normal sensory function, Normal motor function Extremities: No clubbing, No cyanosis, No edema, Normal pulses, No tenderness/swelling Neuro: Normal gait, Normal speech Skin: Dry, Intact Psych/Mental Status: Mental status NL, Mood NL Medications Current Medications Medications Dose Ordered Sig/Edgard Route Start Time Stop Time Status Last Admin Dose Admin Albuterol 2.5 mg Q4HPRN PRN NEB 07/04/24 04:45 07/08/24 02:28 2.5 MG Apixaban 5 mg BID PO 07/04/24 10:00 07/08/24 21:35 5 MG Atorvastatin Calcium 20 mg HS PO 07/04/24 22:00 07/08/24 21:35 20 MG Docusate Sodium 100 mg BIDPRN PRN PO 07/04/24 04:45 07/08/24 21:35 100 MG Hydralazine HCl 10 mg Q6HP PRN IV 07/04/24 04:45 Ipratropium [place] 0.5 mg Q4HPRN PRN NEB 07/04/24 04:45 07/08/24 02:29 0.5 MG Morphine Sulfate 2 mg Q30M PRN IV 07/04/24 04:45 Nitroglycerin 0.4 mg Q5MINP PRN SL 07/04/24 04:45 Ondansetron HCl 4 mg Q4HP PRN IV 07/04/24 04:45 07/08/24 00:31 4 MG Sodium Chloride 10 ml Q8HR IV 07/04/24 06:00 07/09/24 05:55 10 ML Carvedilol 3.125 mg Q12HR PO 07/05/24 22:00 07/08/24 21:35 3.125 MG Furosemide 40 mg BIDD IV 07/05/24 18:00 07/09/24 05:55 40 MG Albuterol 2.5 mg Q6HWA NEB 07/05/24 12:00 07/09/24 06:03 2.5 MG Ipratropium [place] 0.5 mg Q6HWA NEB 07/05/24 12:00 07/09/24 06:03 0.5 MG Pantoprazole Sodium 40 mg DAILY@0600 PO 07/07/24 06:00 07/09/24 06:25 40 MG Metolazone 2.5 mg DAILY PO 07/07/24 10:00 07/08/24 09:20 2.5 MG Spironolactone 50 mg DAILY PO 07/07/24 10:00 07/08/24 09:21 50 MG Methylprednisolone Sodium Succinate 40 mg BID IV 07/08/24 22:00 UNV Piperacillin Sod/ Tazobactam Sod 100 ml @ 25 mls/hr Q8HR IV 07/08/24 14:00 07/09/24 05:55 25 MLS/HR Methylprednisolone Sodium Succinate 40 mg BID IV 07/08/24 22:00 07/08/24 21:34 40 MG Sacubitril/ Valsartan 0.5 tab BID PO 07/09/24 10:00 Laboratory Results Laboratory Tests 07/09/24 04:49 Chemistry Test 07/09/24 04:49 Albumin 4.6 g/dL (3.2-4.8) Calcium Level 10.8 mg/dL (8.7-10.4) H Magnesium Level 2.4 mg/dL (1.6-2.6) Total Protein 8.0 g/dL (5.7-8.2) LFT Test 07/09/24 04:49 Alanine Aminotransferase (ALT) 28 U/L (7-40) Alkaline Phosphatase 99 U/L (46-116) Aspartate Amino Transferase (AST) 23 U/L (13-40) Total Bilirubin 0.7 mg/dL (0.2-1.0) Urinalysis Test 07/03/24 22:25 Urine Color Yellow (Yellow) Urine Clarity Clear (Clear) Urine pH 5.5 (5.0-9.0) Urine Specific [place] 1.020 (1.001-1.035) Urine Protein Trace (Negative) H Urine Ketones Negative (Negative) Urine Blood Negative /uL (Negative) Urine Nitrite 2+ (Negative) H Urine Bilirubin Negative (Negative) Urine Urobilinogen Normal mg/dL (Negative) Urine Leukocyte Esterase Negative /uL (Negative) Urine RBC 1 /hpf (0 - 4) Urine Microscopic WBC 2 /HPF (0-5) Urine Squamous Epithelial Cells Few /hpf (<5) Urine Bacteria Few /hpf (None Seen) H Urine Hyaline Casts Few /lpf (0 - 2) Urine Mucus Few (None Seen) Urine Glucose Normal mg/dL (Normal) Microbiology Microbiology Date/Time Source Procedure Growth Status 07/03/24 22:25 Voided Urine Urine Culture - Final Escherichia coli Complete 07/03/24 21:20 Blood Blood Culture - Final NO GROWTH AFTER 5 DAYS OF INCUBATION. Complete Labs and/or images reviewed: Labs reviewed by me, Image(s) reviewed by me Assessment/Plan Assessment/Plan Impression: -acute hypoxic respiratory failure -COPD with exacerbation -acute on chronic systolic and diastolic systolic heart failure -nicotine dependence -morbid obesity -obstructive sleep apnea -history of PE -UTI with E coli -rule out pneumonia, possible Gram-positive/Gram-negative etiology -NSTEMI type 2 -primary hypertension Plan: -events: Patient very discouraged wants to leave the hospital. Patient re- educated on the need to continue current plan of care. Instructed patient that her current condition is acute on chronic and will take time to correct her current hypoxia. -adequate negative intake and output balance. Continue Lasix, spironolactone, metolazone -guideline directed medical therapy for CHF. Add Entresto 0.5 tablet b.i.d., continue Coreg, IV diuresis, spironolactone, hold Jardiance given UTI -continue antibiotic therapy with Zosyn -out of bed as tolerated -titrate O2 to keep saturation greater than 90%. -BiPAP as tolerated -smoking cessation education -repeat labs in a.m. -continue bronchodilators, Pulmicort, Solu-Medrol Total time spent with patient discussing and formulating plan of care: 35 minutes. This medical document was created using an electronic medical record system with [employer] dictation system. Although this document has been carefully reviewed, there may still be some phonetic and typographical errors. These areas are purely typographical due to imperfections of the software programs, and do not reflect any compromise in the patient's medical care. Plan discussed with: Patient, Other (RN) My Orders Orders - DELTA MCCABE NP Procedure Category Date Status Time Sacubitril-Valsartan PHA 07/09/24 In Process (Entresto 24-26 Mg 10:00 Basic Metabolic Panel LAB 07/10/24 Verified 04:00 Chest Portable XY 07/10/24 Logged 04:00 Date of Service: Jul 09, 2024 Billing Provider: DELTA MCCABE NP Common Visit Codes: [id number] INP/OBS CARE(HIGH) DELTA MCCABE NP Jul 09, 2024 09:19
[2024-07-09] MEDS: BUDESONIDE (INHALATION) 0.5 MG/2 ML NEB NEB SCH (09:38)
[2024-07-09] MEDS: SACUBITRIL-VALSARTAN 24mg/26mg TAB PO SCH (11:09)
--- NOTE | 2024-07-09 15:11 | ECG ---
[facility] Test Date: 2024-07-08 Test Time: 09:58:22 Pat Name: JESSICA MURRELL Department: Room: 0203T A Gender: F Catering Director: CHRIS : 1975 Requested By: PASHA EDMONDS Order Number: [id number] Reading MD: Stanislav Young Measurements Intervals [place] Rate: 86 P: 45 WI: 155 QRS: -29 QRSD: 120 T: 103 QT: 400 QTc: 479 Interpretive Statements Sinus rhythm Ventricular premature complex Biatrial enlargement LVH with IVCD and secondary repol abnrm Electronically Signed On 07-10-2024 18:13:18 PDT by Stanislav Young Please click the below link to view image of tracing.
[2024-07-10] VITALS (12 sets, daily range): BP systolic 95–125; BP diastolic 55–79; PULSE 73–98; RESP 15–22; TEMP 97.6–98.5; O2SAT 88–98
[2024-07-10 08:33] LABS: Anion Gap 12 (5-15)
[2024-07-10 08:34] LABS: Calcium 10.4 mg/dL (8.7-10.4)
[2024-07-10 08:39] LABS: Glucose 102 mg/dL (74-106)
[2024-07-10 08:40] LABS: Blood Urea Nitrogen 49 mg/dL (9-23); Carbon Dioxide 35 mmol/L (20-31); Chloride 85 mmol/L (98-107); Potassium 3.4 mmol/L (3.5-5.1); Sodium 132 mmol/L (136-145)
--- NOTE | 2024-07-10 10:10 | DVH ---
CLINICAL INFORMATION: Congestive heart failure. TECHNIQUE: Single AP portable chest radiograph was obtained. COMPARISON: XY CHEST PORTABLE on DOS: 07/08/24, XY CHEST PORTABLE on DOS: 07/06/24, XY CHEST XRAY 1 VIE W on DOS: 07/03/24 FINDINGS: Mild bilateral perihilar interstitial opacities, minimally changed. Prominence of the pulmonary vasc ulature and cardiomegaly are unchanged atelectasis in the lung bases no dense focal consolidation. N o pneumothorax or pleural effusion visualized. No other significant interval change. IMPRESSION: No significant interval change as detailed above.
--- NOTE | 2024-07-10 16:54 | DVHPN2 ---
Subjective Patient reports that her breathing has improved. Continues to want to leave for home. Reviewed: Care Plan, H&P, Labs, Medications, Previous Orders Changes from previous H/P or p: Changes General: Per HPI Eyes: No Pain, No Vision change, No Conjunctivae inflammation, No Eyelid inflammation, No Other, No Redness ENT: No Ear pain, No Ear discharge, No Nose pain, No Nose discharge, No Nose congestion, No Mouth pain, No Mouth swelling, No Throat pain, No Throat swelling, No Other Cardiovascular: Chest Pain; No Palpitations, No Orthopnea, No Paroxysmal Noc. Dyspnea, No Edema, No Lt Headedness, No Other Respiratory: No Cough, No Dry; Shortness of breath; No SOB with excertion; W heezing; No Hemoptysis, No Pleuritic Pain, No Sputum; Other (SOB at rest) Gastrointestinal: No Nausea, No Vomiting, No Abdominal Pain, No Diarrhea, No Constipation, No Melena, No Hematochezia, No Other Genitourinary: No Dysuria, No Frequency, No Incontinence, No Hematuria, No Retention, No Other Musculoskeletal: No other, No neck pain, No shoulder pain, No arm pain, No back pain, No hand pain, No leg pain, No foot pain Skin: No Rash, No Lesions, No Jaundice, No Bruising, No Other Objective Vitals Vital Signs Date Time Temp Pulse Resp B/P (MAP) Pulse Ox O2 Delivery O2 Flow Rate FiO2 07/10/24 16:41 97.7 84 15 101/55 (70) 92 97.7 07/10/24 12:52 Oxymizer 7.0 07/10/24 12:52 N/A Intake/Output Intake and Output 07/10/24 07:00 Intake Total 600 ml Output Total 2450 ml Balance -1850 ml Intake Oral 500 ml IV Total 100 ml Output Urine Total 2450 ml # Bowel Movements 1 General Appearance: Alert, Oriented X3, Cooperative, mild distress, Other (Morbid obesity) HEENT: Atraumatic, PERRLA Neck: Carotid [place] Cardiovascular: Normal S1, Normal S2 Abdomen: Normal bowel sounds, Soft, No tenderness Genitourinary: No Apparent Abnormalities (Dao catheter) Musculoskeletal: Normal sensory function, Normal motor function Extremities: No clubbing, No cyanosis, No edema, Normal pulses, No tenderness/swelling Neuro: Normal gait, Normal speech Skin: Dry, Intact Psych/Mental Status: Mental status NL, Mood NL Medications Current Medications Medications Dose Ordered Sig/Edgard Route Start Time Stop Time Status Last Admin Dose Admin Albuterol 2.5 mg Q4HPRN PRN NEB 07/04/24 04:45 07/08/24 02:28 2.5 MG Apixaban 5 mg BID PO 07/04/24 10:00 07/10/24 09:36 5 MG Atorvastatin Calcium 20 mg HS PO 07/04/24 22:00 07/09/24 21:06 20 MG Docusate Sodium 100 mg BIDPRN PRN PO 07/04/24 04:45 07/08/24 21:35 100 MG Hydralazine HCl 10 mg Q6HP PRN IV 07/04/24 04:45 Ipratropium [place] 0.5 mg Q4HPRN PRN NEB 07/04/24 04:45 07/08/24 02:29 0.5 MG Morphine Sulfate 2 mg Q30M PRN IV 07/04/24 04:45 Nitroglycerin 0.4 mg Q5MINP PRN SL 07/04/24 04:45 Ondansetron HCl 4 mg Q4HP PRN IV 07/04/24 04:45 07/08/24 00:31 4 MG Sodium Chloride 10 ml Q8HR IV 07/04/24 06:00 07/10/24 13:28 10 ML Carvedilol 3.125 mg Q12HR PO 07/05/24 22:00 07/10/24 09:37 3.125 MG Furosemide 40 mg BIDD IV 07/05/24 18:00 07/10/24 05:40 40 MG Albuterol 2.5 mg Q6HWA NEB 07/05/24 12:00 07/10/24 12:52 2.5 MG Ipratropium [place] 0.5 mg Q6HWA NEB 07/05/24 12:00 07/10/24 12:52 0.5 MG Pantoprazole Sodium 40 mg DAILY@0600 PO 07/07/24 06:00 07/10/24 05:41 40 MG Metolazone 2.5 mg DAILY PO 07/07/24 10:00 07/10/24 09:36 2.5 MG Spironolactone 50 mg DAILY PO 07/07/24 10:00 07/10/24 09:35 50 MG Methylprednisolone Sodium Succinate 40 mg BID IV 07/08/24 22:00 UNV Piperacillin Sod/ Tazobactam Sod 100 ml @ 25 mls/hr Q8HR IV 07/08/24 14:00 07/10/24 13:28 25 MLS/HR Methylprednisolone Sodium Succinate 40 mg BID IV 07/08/24 22:00 07/10/24 09:35 40 MG Sacubitril/ Valsartan 0.5 tab BID PO 07/09/24 10:00 07/10/24 09:37 0.5 TAB Budesonide 0.5 mg BID NEB 07/09/24 10:00 07/10/24 06:43 0.5 MG Laboratory Results Laboratory Tests 07/09/24 04:49 07/10/24 05:15 Chemistry Test 07/10/24 05:15 Calcium Level 10.4 mg/dL (8.7-10.4) Urinalysis Test 07/03/24 22:25 Urine Color Yellow (Yellow) Urine Clarity Clear (Clear) Urine pH 5.5 (5.0-9.0) Urine Specific [place] 1.020 (1.001-1.035) Urine Protein Trace (Negative) H Urine Ketones Negative (Negative) Urine Blood Negative /uL (Negative) Urine Nitrite 2+ (Negative) H Urine Bilirubin Negative (Negative) Urine Urobilinogen Normal mg/dL (Negative) Urine Leukocyte Esterase Negative /uL (Negative) Urine RBC 1 /hpf (0 - 4) Urine Microscopic WBC 2 /HPF (0-5) Urine Squamous Epithelial Cells Few /hpf (<5) Urine Bacteria Few /hpf (None Seen) H Urine Hyaline Casts Few /lpf (0 - 2) Urine Mucus Few (None Seen) Urine Glucose Normal mg/dL (Normal) Microbiology Microbiology Date/Time Source Procedure Growth Status 07/03/24 22:25 Voided Urine Urine Culture - Final Escherichia coli Complete 07/03/24 21:20 Blood Blood Culture - Final NO GROWTH AFTER 5 DAYS OF INCUBATION. Complete Labs and/or images reviewed: Labs reviewed by me, Image(s) reviewed by me Assessment/Plan Assessment/Plan Impression: -acute hypoxic respiratory failure -COPD with exacerbation -acute on chronic systolic and diastolic systolic heart failure -nicotine dependence -morbid obesity -obstructive sleep apnea -history of PE -UTI with E coli -rule out pneumonia, possible Gram-positive/Gram-negative etiology -NSTEMI type 2 -primary hypertension Plan: -events: Patient now on 6 L via Oxymizer. Long discussion made with the patient regarding goals of care including decreasing oxygen to 4 L via regular nasal cannula. Patient continues to refuse wearing BiPAP. Encourage patient to get out of bed to chair for meals. She verbalized understanding. -adequate negative intake and output balance. Continue Lasix, spironolactone, metolazone -guideline directed medical therapy for CHF. Add Entresto 0.5 tablet b.i.d., continue Coreg, IV diuresis, spironolactone, hold Jardiance given UTI -continue antibiotic therapy with Zosyn -out of bed as tolerated -titrate O2 to keep saturation greater than 90%. -BiPAP as tolerated -smoking cessation education -repeat labs and chest x-ray in a.m.. -continue bronchodilators, Pulmicort, Solu-Medrol Total time spent with patient discussing and formulating plan of care: 35 minutes. This medical document was created using an electronic medical record system with [employer] dictation system. Although this document has been carefully reviewed, there may still be some phonetic and typographical errors. These areas are purely typographical due to imperfections of the software programs, and do not reflect any compromise in the patient's medical care. Plan discussed with: Patient, Other (RN) My Orders Orders - DELTA MCCABE NP Procedure Category Date Status Time Basic Metabolic Panel LAB 07/11/24 Verified 04:00 Chest Portable XY 07/11/24 Verified 04:00 Date of Service: Jul 10, 2024 Billing Provider: DELTA MCCABE NP Common Visit Codes: [id number] INP/OBS CARE(HIGH) DELTA MCCABE NP Jul 10, 2024 16:54
[2024-07-11] VITALS (15 sets, daily range): BP systolic 91–122; BP diastolic 53–63; PULSE 78–91; RESP 17–20; TEMP 97.6–98.8; O2SAT 86–96
[2024-07-11 06:15] LABS: Anion Gap 8 (5-15); Potassium 3.8 mmol/L (3.5-5.1)
[2024-07-11 06:16] LABS: Calcium 10.4 mg/dL (8.7-10.4)
[2024-07-11 06:21] LABS: BUN/Creatinine Ratio 36.5 (10.0-20.0)
[2024-07-11 06:35] LABS: Blood Urea Nitrogen 65 mg/dL (9-23); Carbon Dioxide 38 mmol/L (20-31); Chloride 86 mmol/L (98-107); Glucose 138 mg/dL (74-106); Sodium 132 mmol/L (136-145)
--- NOTE | 2024-07-11 09:50 | DVHPN2 ---
Subjective Patient reports that her breathing has improved. Continues to want to leave for home. Reviewed: Care Plan, H&P, Labs, Medications, Previous Orders Changes from previous H/P or p: No Changes General: Per HPI Eyes: No Pain, No Vision change, No Conjunctivae inflammation, No Eyelid inflammation, No Other, No Redness ENT: No Ear pain, No Ear discharge, No Nose pain, No Nose discharge, No Nose congestion, No Mouth pain, No Mouth swelling, No Throat pain, No Throat swelling, No Other Cardiovascular: Chest Pain; No Palpitations, No Orthopnea, No Paroxysmal Noc. Dyspnea, No Edema, No Lt Headedness, No Other Respiratory: No Cough, No Dry; Shortness of breath; No SOB with excertion; W heezing; No Hemoptysis, No Pleuritic Pain, No Sputum; Other (SOB at rest) Gastrointestinal: No Nausea, No Vomiting, No Abdominal Pain, No Diarrhea, No Constipation, No Melena, No Hematochezia, No Other Genitourinary: No Dysuria, No Frequency, No Incontinence, No Hematuria, No Retention, No Other Musculoskeletal: No other, No neck pain, No shoulder pain, No arm pain, No back pain, No hand pain, No leg pain, No foot pain Skin: No Rash, No Lesions, No Jaundice, No Bruising, No Other Objective Vitals Vital Signs Date Time Temp Pulse Resp B/P (MAP) Pulse Ox O2 Delivery O2 Flow Rate FiO2 07/11/24 09:00 97.7 80 17 110/53 (72) 96 97.7 07/11/24 07:46 Oxymizer 6.0 07/11/24 07:46 N/A Intake/Output Intake and Output 07/11/24 07:00 Intake Total 1280 ml Output Total 1850 ml Balance -570 ml Intake Oral 980 ml IV Total 300 ml Output Urine Total 1850 ml General Appearance: Alert, Oriented X3, Cooperative, mild distress, Other (Morbid obesity) HEENT: Atraumatic, PERRLA Neck: Carotid [place] Cardiovascular: Normal S1, Normal S2 Abdomen: Normal bowel sounds, Soft, No tenderness Genitourinary: No Apparent Abnormalities (Dao catheter) Musculoskeletal: Normal sensory function, Normal motor function Extremities: No clubbing, No cyanosis, No edema, Normal pulses, No tenderness/swelling Neuro: Normal gait, Normal speech Skin: Dry, Intact Psych/Mental Status: Mental status NL, Mood NL Medications Current Medications Medications Dose Ordered Sig/Edgard Route Start Time Stop Time Status Last Admin Dose Admin Albuterol 2.5 mg Q4HPRN PRN NEB 07/04/24 04:45 07/08/24 02:28 2.5 MG Apixaban 5 mg BID PO 07/04/24 10:00 07/10/24 22:18 5 MG Atorvastatin Calcium 20 mg HS PO 07/04/24 22:00 07/10/24 22:18 20 MG Docusate Sodium 100 mg BIDPRN PRN PO 07/04/24 04:45 07/08/24 21:35 100 MG Hydralazine HCl 10 mg Q6HP PRN IV 07/04/24 04:45 Ipratropium [place] 0.5 mg Q4HPRN PRN NEB 07/04/24 04:45 07/08/24 02:29 0.5 MG Morphine Sulfate 2 mg Q30M PRN IV 07/04/24 04:45 Nitroglycerin 0.4 mg Q5MINP PRN SL 07/04/24 04:45 Ondansetron HCl 4 mg Q4HP PRN IV 07/04/24 04:45 07/08/24 00:31 4 MG Sodium Chloride 10 ml Q8HR IV 07/04/24 06:00 07/11/24 05:12 10 ML Carvedilol 3.125 mg Q12HR PO 07/05/24 22:00 07/10/24 09:37 3.125 MG Furosemide 40 mg BIDD IV 07/05/24 18:00 07/10/24 18:32 40 MG Albuterol 2.5 mg Q6HWA NEB 07/05/24 12:00 07/11/24 07:46 2.5 MG Ipratropium [place] 0.5 mg Q6HWA NEB 07/05/24 12:00 07/11/24 07:46 0.5 MG Pantoprazole Sodium 40 mg DAILY@0600 PO 07/07/24 06:00 07/11/24 05:12 40 MG Metolazone 2.5 mg DAILY PO 07/07/24 10:00 07/10/24 09:36 2.5 MG Spironolactone 50 mg DAILY PO 07/07/24 10:00 07/10/24 09:35 50 MG Methylprednisolone Sodium Succinate 40 mg BID IV 07/08/24 22:00 UNV Piperacillin Sod/ Tazobactam Sod 100 ml @ 25 mls/hr Q8HR IV 07/08/24 14:00 07/11/24 05:20 25 MLS/HR Methylprednisolone Sodium Succinate 40 mg BID IV 07/08/24 22:00 07/10/24 22:28 40 MG Sacubitril/ Valsartan 0.5 tab BID PO 07/09/24 10:00 07/10/24 22:17 0.5 TAB Budesonide 0.5 mg BID NEB 07/09/24 10:00 07/11/24 07:46 0.5 MG Laboratory Results Laboratory Tests 07/09/24 04:49 07/11/24 05:22 Chemistry Test 07/11/24 05:22 Calcium Level 10.4 mg/dL (8.7-10.4) Urinalysis Test 07/03/24 22:25 Urine Color Yellow (Yellow) Urine Clarity Clear (Clear) Urine pH 5.5 (5.0-9.0) Urine Specific [place] 1.020 (1.001-1.035) Urine Protein Trace (Negative) H Urine Ketones Negative (Negative) Urine Blood Negative /uL (Negative) Urine Nitrite 2+ (Negative) H Urine Bilirubin Negative (Negative) Urine Urobilinogen Normal mg/dL (Negative) Urine Leukocyte Esterase Negative /uL (Negative) Urine RBC 1 /hpf (0 - 4) Urine Microscopic WBC 2 /HPF (0-5) Urine Squamous Epithelial Cells Few /hpf (<5) Urine Bacteria Few /hpf (None Seen) H Urine Hyaline Casts Few /lpf (0 - 2) Urine Mucus Few (None Seen) Urine Glucose Normal mg/dL (Normal) Microbiology Microbiology Date/Time Source Procedure Growth Status 07/03/24 22:25 Voided Urine Urine Culture - Final Escherichia coli Complete 07/03/24 21:20 Blood Blood Culture - Final NO GROWTH AFTER 5 DAYS OF INCUBATION. Complete Labs and/or images reviewed: Labs reviewed by me, Image(s) reviewed by me Assessment/Plan Assessment/Plan Impression: -acute hypoxic respiratory failure -COPD with exacerbation -acute on chronic systolic and diastolic systolic heart failure -nicotine dependence -morbid obesity -obstructive sleep apnea -history of PE -UTI with E coli -rule out pneumonia, possible Gram-positive/Gram-negative etiology -NSTEMI type 2 -primary hypertension Plan: events: Decreased to 4 L via Oxymizer. Patient was in better spirits. Refusing BiPAP. Discussed with the patient marked improvement with O2 requirements. Plans for discharge once off Oxymizer and between 2-4 liters/minute. -PT consultation -guideline directed medical therapy for CHF. Continue Entresto 0.5 tablet b.i.d., continue Coreg, IV diuresis, spironolactone, hold Jardiance given UTI -continue antibiotic therapy with Zosyn -out of bed as tolerated -titrate O2 to keep saturation greater than 90%. -BiPAP as tolerated -smoking cessation education -repeat labs and chest x-ray in a.m.. -continue bronchodilators, Pulmicort, Solu-Medrol Total time spent with patient discussing and formulating plan of care: 35 minutes. This medical document was created using an electronic medical record system with [employer] dictation system. Although this document has been carefully reviewed, there may still be some phonetic and typographical errors. These areas are purely typographical due to imperfections of the software programs, and do not reflect any compromise in the patient's medical care. Plan discussed with: Patient, Other (RN) My Orders Orders - DELTA MCCABE NP Procedure Category Date Status Time Chest Portable XY 07/11/24 Taken 04:00 Pt Request For Service PT 07/11/24 Logged 08:52 Date of Service: Jul 11, 2024 Billing Provider: DELTA MCCABE NP Common Visit Codes: [id number] INP/OBS CARE(HIGH) DELTA MCCABE NP Jul 11, 2024 09:49
--- NOTE | 2024-07-11 10:17 | DVH ---
XY CHEST PORTABLE, HISTORY: pna, chf COMPARISON: XY CHEST PORTABLE on DOS: 07/10/24, XY CHEST PORTABLE on DOS: 07/08/24, XY CHEST PORTABLE o n DOS: 07/06/24 XY CHEST PORTABLE on DOS: 07/10/24, XY CHEST PORTABLE on DOS: 07/08/24, XY CHEST PORTABLE on DOS: TECHNICAL DATA: 1 view of the chest was obtained. FINDINGS: Lines and tubes: None Cardiomediastinal silhouette: normal Pulmonary vasculature: normal Lung expansion: normal Lung airspace: normal Lung interstitium: normal Pleura: normal Pneumothorax: no Bones: Unremarkable Other: no IMPRESSION: No acute intrathoracic abnormality.
[2024-07-12] VITALS (10 sets, daily range): BP systolic 97–129; BP diastolic 49–80; PULSE 63–88; RESP 16–21; TEMP 97.5–98.5; O2SAT 90–100
--- NOTE | 2024-07-12 10:45 | DVHDS2 ---
Discharge Summary Date of Admission Jul 04, 2024 at 03:47 Date of Discharge: Jul 12, 2024 Labs/Diagnostic Data: Laboratory Results Test 07/11/24 05:22 07/09/24 04:49 07/07/24 10:06 07/04/24 00:19 Sodium Level 132 mmol/L (136-145) Potassium Level 3.8 mmol/L (3.5-5.1) Chloride Level 86 mmol/L (98-107) Carbon Dioxide Level 38 mmol/L (20-31) Anion Gap 8 (5-15) Blood Urea Nitrogen 65 mg/dL (9-23) Creatinine 1.78 mg/dL (0.550-1.02) Glomerular Filtration Rate Calc 34 mL/min (>90) BUN/Creatinine Ratio 36.5 (10.0-20.0) Serum Glucose 138 mg/dL (74-106) Calcium Level 10.4 mg/dL (8.7-10.4) White Blood Count 14.5 10^3/uL (4.4-10.8) Red Blood Count 6.14 10^6/uL (4.0-5.20) Hemoglobin 17.7 g/dL (12.2-16.2) Hematocrit 53.4 % (36.0-46.0) Mean Corpuscular Volume 87.0 fL (80.0-100.0) Mean Corpuscular Hemoglobin 28.9 pg (28.0-32.0) Mean Corpuscular Hemoglobin Concent 33.2 g/dL (32.0-36.0) Red Cell Distribution Width 15.9 % (11.8-14.3) Platelet Count 312 10^3/uL (140-450) Mean Platelet Volume 9.2 fL (6.9-10.8) Neutrophils (%) (Auto) 90.9 % (37.0-80.0) Lymphocytes (%) (Auto) 7.0 % (10.0-50.0) Monocytes (%) (Auto) 1.3 % (0.0-12.0) Eosinophils (%) (Auto) 0.1 % (0.0-7.0) Basophils (%) (Auto) 0.7 % (0.0-2.0) Neutrophils # (Auto) 13.2 10 ^3/uL (1.6-8.6) Lymphocytes # (Auto) 1.0 10 ^3/uL (0.4-5.4) Monocytes # (Auto) 0.2 10 ^3/uL (0-1.3) Eosinophils # (Auto) 0 10 ^3/uL (0-0.8) Basophils # (Auto) 0.1 10 ^3/uL (0-0.2) Nucleated Red Blood Cells 0.6 % Magnesium Level 2.4 mg/dL (1.6-2.6) Total Bilirubin 0.7 mg/dL (0.2-1.0) Aspartate Amino Transferase (AST) 23 U/L (13-40) Alanine Aminotransferase (ALT) 28 U/L (7-40) Alkaline Phosphatase 99 U/L (46-116) Total Protein 8.0 g/dL (5.7-8.2) Albumin 4.6 g/dL (3.2-4.8) Blood Gas Specimen Type Arterial Blood Gas Sample Site Left radial Blood Gas Patient Temperature 37.0 Arterial Blood Date Drawn [id number] Arterial Blood pH 7.437 (7.350-7.450) Arterial Blood Partial Pressure CO2 55.3 mmHg (32.0-45.0) Arterial Blood Partial Pressure O2 53.3 mmHg (83.0-108.0) Arterial Blood HCO3 36.5 mmol/L (21.0-28.0) Arterial Blood Oxygen Saturation 86.4 % (94.0-98.0) Arterial Blood Base Excess 9.8 mmol/L (-2.0-3.0) Arterial Blood Oxyhemoglobin 84.9 % (94.0-98.0) Arterial Blood Carboxyhemoglobin 1.3 % (0.5-1.5) Arterial Blood Methemoglobin 0.4 % (0.0-1.5) Mohsen Test Yes Blood Gas Total Hemoglobin 17.10 g/dL (12.0-16.0) Blood Gas Liter Flow 15.00 Blood Gas Modality Oxymizer FiO2 % 82.0 Blood Gas Critical Value Read Back Yes Blood Gas Notified Whom Rox benitez Blood Gas Notified Time [id number] Blood Gas Notified By Eliud watson Troponin I High Sensitivity 263 ng/L (</=34) Test 07/03/24 22:25 07/03/24 22:05 07/03/24 21:38 07/03/24 21:20 Urine Color Yellow (Yellow) Urine Clarity Clear (Clear) Urine pH 5.5 (5.0-9.0) Urine Specific [place] 1.020 (1.001-1.035) Urine Protein Trace (Negative) Urine Ketones Negative (Negative) Urine Blood Negative /uL (Negative) Urine Nitrite 2+ (Negative) Urine Bilirubin Negative (Negative) Urine Urobilinogen Normal mg/dL (Negative) Urine Leukocyte Esterase Negative /uL (Negative) Urine RBC 1 /hpf (0 - 4) Urine Microscopic WBC 2 /HPF (0-5) Urine Squamous Epithelial Cells Few /hpf (<5) Urine Bacteria Few /hpf (None Seen) Urine Hyaline Casts Few /lpf (0 - 2) Urine Mucus Few (None Seen) Urine Glucose Normal mg/dL (Normal) Blood Gas Set Respiration Rate 12.0 Blood Gas EPAP 5 Blood Gas IPAP 12 Influenza Type A Antigen Negative (Negative) Influenza Type B Antigen Negative (Negative) SARS-CoV-2 Antigen (Rapid) Negative (NEGATIVE) D-Dimer, Quantitative 3.51 mg/L FEU (0.0-0.49) Lactic Acid Level 0.9 mmol/L (0.4-2.0) B-Type Natriuretic Peptide 376.99 pg/mL (0-100) Other Laboratory Tests 07/11/24 05:22 07/09/24 04:49 Brief Hx & Hospital Course: SEE DICTATED NOTE Condition at Discharge: Fair Final Diagnosis/Problems List CHF Discharge Disposition: Home Discharge Statement: "Patient was advised to return to the ER or call 911 if any headaches, dizziness, shortness of breath, chest pain, abdominal pain, bleeding, fevers, or worsening of medical condition. Patient was counseled about treatment plan, medications, possible side effects, patientverbalized understanding. All questions were answered to the best of my ability. This discharge took greater then 30 minutes in planning, reviewing documentation, counseling the patient, and discussing with other team members." ASSESSMENT ASSESSMENT Assessment Date of Service: Jul 12, 2024 Billing Provider: PASHA EDMONDS MD Common Visit Codes: 39858-[facility]/OBS DISCH DAY >30min PASHA EDMONDS MD Jul 12, 2024 10:45
[2024-07-12] MEDS ORDERED: PRED20TA2 PO (10:46)
--- NOTE | 2024-07-12 11:03 | DVHDS ---
DATE OF DISCHARGE: 07/12/2024 HISTORY OF PRESENT ILLNESS: The patient is a 49-year-old lady who was admitted with history of increasing shortness of breath and has history of COPD, congestive heart failure, hypertension, sleep apnea and previous pulmonary embolism. HOSPITAL COURSE: The patient had a chest x-ray that showed evidence of congestive heart failure. The patient's urine grew E. coli, which was sensitive to all antibiotics. The patient had a CT angiography that was negative for pulmonary embolism. She had an echocardiogram done that showed ejection fraction of 35-40%. The patient was diuresed with Lasix. The patient's oxygenation has significantly improved and she is currently on 3-4 liters of oxygen. She will be discharged home to resume her home medications as well as to be on prednisone 20 mg daily for 5 days. She has been strongly advised to quit tobacco abuse. FINAL DIAGNOSES: Therefore, * Acute on chronic respiratory failure. * Acute on chronic systolic/diastolic heart failure. * Chronic obstructive pulmonary disease with exacerbation. * Tobacco abuse. * Sleep apnea. * Morbid obesity. * History of pulmonary embolism. * Urinary tract infection. * Questionable pneumonia, gram-positive, gram-negative. * Non-ST elevation myocardial infarction, questionable type 2. * Hypertension. Time spent in discharge planning and review of plan with the patient and family at the bedside was 39 minutes. MD WHITLEY Zuniga/JUAN CARLOS TID: [id number] RECEIPT: [id number]
== END 2024-07-12 15:00 | disposition home or self-care (01) | DRG 280 ==
LOC: EDBD 20:53 → ER 20:53 → OVERFLOW 07-04 03:47 → TELE-CENTR 07-04 17:46
PROVIDERS: ADMIT Internal Medicine; ATTEND Internal Medicine
PROC: 5A09357 Assistance with Respiratory Ventilation, Less than 24 Consecutive Hours, Continuous Positive Airway Pressure (ICD-10-PCS; principal; 2024-07-03)
PROC: 5A09357 Assistance with Respiratory Ventilation, Less than 24 Consecutive Hours, Continuous Positive Airway Pressure (ICD-10-PCS; 2024-07-04)
PROC: 5A09357 Assistance with Respiratory Ventilation, Less than 24 Consecutive Hours, Continuous Positive Airway Pressure (ICD-10-PCS; 2024-07-05)
PROC: 5A09357 Assistance with Respiratory Ventilation, Less than 24 Consecutive Hours, Continuous Positive Airway Pressure (ICD-10-PCS; 2024-07-06)
PROC: 5A09357 Assistance with Respiratory Ventilation, Less than 24 Consecutive Hours, Continuous Positive Airway Pressure (ICD-10-PCS; 2024-07-07)
PROC: 5A09357 Assistance with Respiratory Ventilation, Less than 24 Consecutive Hours, Continuous Positive Airway Pressure (ICD-10-PCS; 2024-07-08)
PROC: 5A09357 Assistance with Respiratory Ventilation, Less than 24 Consecutive Hours, Continuous Positive Airway Pressure (ICD-10-PCS; 2024-07-09)
DX: I11.0 Hypertensive heart disease with heart failure (principal); I50.43 Acute on chronic combined systolic (congestive) and diastolic (congestive) heart failure; I21.A1 Myocardial infarction type 2; J15.69 Pneumonia due to other Gram-negative bacteria; J96.21 Acute and chronic respiratory failure with hypoxia; J15.9 Unspecified bacterial pneumonia; J44.1 Chronic obstructive pulmonary disease with (acute) exacerbation; N39.0 Urinary tract infection, site not specified; Z68.44 Body mass index [BMI] 60.0-69.9, adult; E66.01 Morbid (severe) obesity due to excess calories; Z20.822 Contact with and (suspected) exposure to COVID-19; B96.20 Unspecified Escherichia coli [E. coli] as the cause of diseases classified elsewhere; G47.33 Obstructive sleep apnea (adult) (pediatric); Z88.6 Allergy status to analgesic agent; Z79.899 Other long term (current) drug therapy; Z86.711 Personal history of pulmonary embolism; Z87.891 Personal history of nicotine dependence
CPT/HCPCS: 36415; 36600; 71045; 71275; 80048; 80053; 81001; 82805; 83605; 83735; 83880; 84484; 85025; 85379; 87040; 87086; 87088; 87186; 87426; 87804; 93005; 93306; 94640; 94660; 96365; 96366; 96367; 96375; 96376; 97110; 97163; 99291; G0378; J2405; J2543; J3490